=== PATIENT | female | born 1935 | race Caucasian/White ===

== ENCOUNTER → 2017-08-12 08:25 | Outpatient (CLI) | payer MEDICARE, OTHER, SELFPAY ==
[2017-08-12 10:09] LABS: AST(SGOT) 27 U/L (15-37); Alanine Aminotransfer ALT/SGPT 30 U/L (13-56); Albumin, Serum 3.7 g/dL (3.2-5.0); Alkaline Phosphatase 120 U/L (45-117); Bilirubin, Direct 0.14 mg/dL (0.00-0.30); Cholesterol 132 mg/dL (200); High Density Lipoprotein 53 mg/dL; Protein, Total 7.7 g/dL (6.4-8.2); Triglycerides 81 mg/dL; Very Low Density Lipoprotein 16 mg/dL (5-40)
== END ==
PROVIDERS: Family Provider Family Medicine; PCP Family Medicine; Visit Provider Physician Assistant Medical
DX: E78.5 Hyperlipidemia, unspecified (principal); Z79.899 Other long term (current) drug therapy
CPT/HCPCS: 36415; 80061; 80076

== ENCOUNTER → 2017-08-14 10:31 | Outpatient (CLI) | payer MEDICARE, OTHER, SELFPAY ==
--- NOTE | 2017-08-14 10:35 | BI_ITS ---
MAMMOGRAPHY - BILATERAL SCREENING REASON FOR EXAM: Female, 82 years old. Routine annual screening examination. PERTINENT HISTORY: Mother with breast cancer. TECHNIQUE: Digital bilateral breast milli (3D mammographic acquisition) in the CC and MLO projections. 2-D mediolateral oblique (MLO) and craniocaudad (CC) views of both breasts were obtained. CAD: Full Field Digital Mammography with Computer Added Detection was performed. COMPARISON: Comparison is made with prior examination dated August 10, 2015 and July 28, 2014. FINDINGS: Breast Composition: The breasts are heterogeneously dense, which may obscure small masses. There are no dominant masses or suspicious calcifications. Stable bilateral secretory calcifications. No other significant abnormalities are identified. There has been no significant change since the prior study. BI/SCREENING MAMM (CAD), BILAT IMPRESSION: Stable bilateral screening mammogram. Yearly follow-up mammogram recommended. (A) ASSESSMENT CATEGORY: BIRADS Category 2: Benign. A letter regarding these results will be sent to the patient by the facility within 30 days. Approximately 10% of breast cancers are not detected by mammography. A normal mammogram should not delay biopsy of a clinically suspicious abnormality. [id number] Electronically Signed: Herberth Cuello MD at 10:29 EDT Tel [phone], Service support ,
== END ==
PROVIDERS: Family Provider Family Medicine; PCP Family Medicine; Visit Provider Family Medicine
DX: Z00.00 Encounter for general adult medical examination without abnormal findings (principal); Z12.31 Encounter for screening mammogram for malignant neoplasm of breast
CPT/HCPCS: 77063; 77067

== ENCOUNTER → 2018-04-21 15:48 | Outpatient (CLI) | payer MEDICARE, OTHER, SELFPAY ==
[2017-10-05 11:11] VITALS: BMI 18.6
[2018-04-21 18:24] LABS: AST(SGOT) 25 U/L (15-37); Alanine Aminotransfer ALT/SGPT 27 U/L (13-56); Albumin, Serum 3.5 g/dL (3.2-5.0); Alkaline Phosphatase 128 U/L (45-117); Anion Gap 10 (5-15); BUN 29 mg/dL (7-18); BUN/Creat Ratio 28.4 RATIO (10-20); Calcium,Total 8.5 mg/dL (8.5-10.1); Chloride 106 mmol/L (98-107); Creatinine, Serum 1.02 mg/dL (0.55-1.02); EST Glomerular Filtration Rate 55 mL/min (>60); Est Glom Filt Rate - Afr Amer 67 mL/min (>60); Globulin 3.4 g/dL (2.2-4.2); Glucose 85 mg/dL (74-106); Potassium 4.4 mmol/L (3.5-5.1); Protein, Total 6.9 g/dL (6.4-8.2); Sodium Level 143 mmol/L (136-145); Thyroid Stim Hormone (TSH) 1.56 uIU/mL (0.358-3.74)
[2018-04-21 18:40] LABS: Microalbumin,Random Urine 19.8 mg/L (NO RANGE EST.); Microalbumin:Creatinine Ratio 18.9 mg/g CRE (<30 mg/g CRE)
--- OUTSIDE RECORDS SUMMARY | 2018-06-23 18:28 | XMS RPT_ITS ---
:1935 Author Organization OHIP Care Team Providers Name Role Phone João Natarajan Attending Unavailable João Natarajan Primary Care Unavailable Ivone Haro Attending Unavailable Ivone Haro Referring Unavailable João Natarajan Primary Care Unavailable João Natarajan Attending Unavailable João Natarajan Primary Care Unavailable Ivone Vanegas Attending Unavailable Esa Bermudez Attending Unavailable João Natarajan Referring Unavailable João Natarajan Primary Care Unavailable PROBLEMS PROBLEMS DATE TYPE CONDITION / CODE ATTENDING STATUS SOURCE 04/21/2018 Unknown I10 - Essential João Natarajan Active [place] (primary) Replaced By [facility] hypertension / Hospital I10(ICD-10) Repository 10/05/2017 Unknown I25.10 - Esa Bermudez Active [place] Atherosclerotic heart Community disease of [facility] coronary artery Repository without angina pectoris / I25.10(ICD-10) 10/05/2017 Unknown I51.81 - Takotsubo Esa Bermudez Active [place] syndrome / Community I51.81(ICD-10) Hospital Repository 10/05/2017 Unknown I34.1 - Nonrheumatic MoodisEsa patel Active [place] mitral (valve) Replaced By [facility] prolapse / Hospital I34.1(ICD-10) Repository 10/05/2017 Unknown E78.2 - Mixed MoodispaEsa givens Active [place] hyperlipidemia / Community E78.2(ICD-10) Hospital Repository 11/04/2017 Unknown Z00.00 - Encounter João Natarajan Active [place] for [facility] adult [facility] without abnormal Repository findings / Z00.00(ICD-10) 10/05/2017 Unknown E78.5 - HaroAgusto mendez Hyperlipidemia, Ivone Deepthi Replaced By [facility] unspecified / Hospital E78.5(ICD-10) Repository PROCEDURES PROCEDURES No Procedure Records FoundRESULTS RESULTS COMPREHENSIVE METABOLIC Collected: 04/21/2018 Status: F Source: [place] PROFIL 3:50 PM [facility] HOSPITAL REPOSITORY TYPE CODE TESTS RESULT OUT OF RANGE REFERENCE UNITS LAB L501.0100 74-106 mg/dL Normal GLU 85 Result Comment: Please note revised GLUCOSE reference range effective 2017. LAB L501.1000 7-18 mg/dL High BUN 29 LAB L501.1100 0.55-1.02 mg/dL Normal CREAT,SERUM 1.02 Result Comment: The validity of the calculated GFR AND GFRAA in patients over 70 years has not been determined. Clinical correlation is essential. LAB L501.1110 >60 mL/min Low EST GFR 55 Result Comment: Non- GFR Calc LAB L501.1115 >60 mL/min Normal EST GFR - AA 67 Result Comment: GFR Calc LAB L501.1300 10-20 RATIO High BUN/CRE 28.4 LAB L501.1500 6.4-8.2 g/dL T Normal PROT 6.9 LAB L501.1800 3.2-5.0 g/dL Normal ALB 3.5 LAB L501.1950 2.2-4.2 g/dL Normal GLOB 3.4 LAB L501.2000 0.9-2.4 RATIO Normal A/G 1.0 LAB L501.2200 8.5-10.1 mg/dL CA Normal 8.5 LAB L501.4100 15-37 U/L Normal AST 25 LAB L501.4305 45-117 U/L High ALK P 128 LAB L501.4405 13-56 U/L Normal ALT 27 LAB L501.4600 0.20-1.00 mg/dL T Normal BILI 0.30 LAB L501.5300 136-145 mmol/L NA Normal 143 LAB L501.5600 3.5-5.1 mmol/L K Normal 4.4 LAB L501.5900 98-107 mmol/L CL Normal 106 LAB L501.6100 21.0-32.0 mmol/L Normal CO2 27.0 LAB L501.6200 5-15 Normal GAP 10 Performed By: #### L500.4050, L501.9520, L502.0250 #### [facility] [address], [place], [address] THYROID STIM HORMONE Collected: 04/21/2018 Status: F Source: [place] (TSH) 3:50 PM [facility] REPOSITORY TYPE CODE TESTS RESULT OUT OF RANGE REFERENCE UNITS LAB L501.9520 0.358-3.74 uIU/mL Normal TSH 1.56 Performed By: #### L500.4050, L501.9520, L502.0250 #### [facility] [address], [place], [address] MICROALB:CREAT Collected: 04/21/2018 Status: F Source: [place] RATIO,RANDOM UR 3:50 PM [facility] REPOSITORY TYPE CODE TESTS RESULT OUT OF RANGE REFERENCE UNITS LAB L501.1200 NO RANGE EST. mg/dL Normal UR CREAT 105.00 LAB L502.0500 NO RANGE EST. mg/L Normal 19.8 MICROALBUMIN ,UR LAB L502.0600 <30 mg/g CRE mg/g CRE Normal 18.9 MALB:CREAT Performed By: #### L500.4050, L501.9520, L502.0250 #### [facility] [address] [place], [address] CARDIOLOGY VISIT Observed: 10/05/2017 Status: F Source: [place] REPORT 11:46 AM [facility] REPOSITORY [place] [facility] [address] [place] [address] OFFICE VISIT Date of Service: 10/05/17 MR#: [id number] Acct: [id number] Name: AMBERLY ZAVALA Rep #: [id number] : 1935 Provider: Esa Bermudez MD Age/Sex: 82/F [place] [facility] [place] Signed HPI HPI Details: AMBERLY ZAVALA, is a 82 F who presents to the office today for for outpatient cardiovascular follow-up of her history of underlying CAD, stress-induced cardiomyopathy, mitral valve prolapse, superimposed on hyperlipidemia. From a cardiac standpoint since her last visit in January 2017 she states she is doing well. She continues to care for her who has Parkinson's disease as well as manage the overall household. There has been no episodes from her standpoint of concerning chest discomfort or difficulty breathing. There has been no evidence of acute CHF or pulmonary edema. There has been no near syncope or syncope. She has not required any additional cardiovascular diagnostic studies or therapeutic intervention. She had her lipid labs performed in July of this year. Her cholesterol is 132 with an LDL of 63 and HDL of 53 and a triglyceride level of 81. Her AST and ALT were within normal range. Intake Vital Signs10/05/17 Height 5 ft 6 in 10/05/17 Weight: 115 lb 10/05/17 Body Mass Index (BMI) 18.6 10/05/17 Blood Pressure 128/68 Intake Visit Reasons: 6 M FU Allergies No Known Allergies Allergy (Verified 10/05/17 11:11) Medications Ascorbic Acid [Vitamin C] 500 mg PO DAILY@0800 04/18/16 [History Confirmed 10/05/17] Aspirin [Aspir-Low] 81 mg PO DAILY 04/18/16 [History Confirmed 10/05/17] Calcium Carbonate [Calcium] 600 mg PO DAILY 04/18/16 [History Confirmed 10/05/17] Calcium/Magnesium/Zinc [Ljcucsk-Puhypkjeq-Peim Tablet] 1 ea PO DAILY 04/18/16 [History Confirmed 10/05/17] Glucosamine Sulf/Chondroitin A [Glucosamine-Chondroitin Cap] 1 tab PO BID 04/18/16 [History Confirmed 10/05/17] Multivitamin [Multiple Vitamins] 1 ea PO DAILY 04/18/16 [History Confirmed 10/05/17] ALPRAZolam [Xanax] 0.5 mg PO TID PRN PRN #60 tab 04/20/16 [Rx Confirmed 10/05/17] clopidogrel 75 mg tablet 75 mg PO DAILY #90 tab 03/11/17 [Rx Confirmed 10/05/17] isosorbide mononitrate ER 60 mg tablet,extended release 24 hr 60 mg PO DAILY #90 tab 06/01/17 [Rx Confirmed 10/05/17] simvastatin 40 mg tablet 40 mg PO QHS #90 tab 06/01/17 [Rx Confirmed 10/05/17] metoprolol tartrate 50 mg tablet 50 mg PO BID 10/01/17 [History Confirmed 10/05/17] nitroglycerin 0.4 mg sublingual tablet 0.4 mg SUBLINGUAL Q5- 15M PRN 10/01/17 [History Confirmed 10/05/17] trospium 20 mg tablet 20 mg PO BID 10/01/17 [History Confirmed 10/05/17] lisinopril 5 mg tablet 5 mg PO BID tab 10/05/17 [History] [facility] Medical History Old myocardial infarction (Acute) Ischemic cardiomyopathy (Acute) Sinus bradycardia (Acute) Nonrheumatic mitral (valve) prolapse (Acute) Atherosclerotic heart disease of [place] coronary artery without angina pectoris (Chronic) Takotsubo cardiomyopathy (Resolved) Angina pectoris (Chronic) Hyperlipidemia (Chronic) Chest pain (Acute) Apical ballooning syndrome (Acute) Hypothyroidism (Acute) Urgency-frequency syndrome (Inactive) Surgical History Hx of appendectomy (Resolved) Social History Smoking Status: Never smoker alcohol intake: current substance use type: does not use ROS Const Const: Negative for fatigue, weakness, weight gain, weight loss, frequent falls or excessive sweating Eyes Eyes: Negative for change in vision, blurry vision or transient loss of vision ENT ENT: Negative for dizziness or balance problems Cardio Chest Pain: No Palpitations: No Edema: None Muscle aches with walking: None Resp Respiratory: Positive for SOB with activity (going up/downstairs); negative for SOB at rest GI GI: Negative vomiting or vomiting blood/hematemesis : Negative for hematuria Musc Musc: Negative for balance problems, muscle aches/ myalgia, muscle weakness or joint pain Skin Skin: Negative non-healing lesions or rash Neuro Neuro: Negative for weakness, blurry vision, dizziness, lightheadedness, frequent falls or orthostatic symptoms Agustin Hematologic/Lymphatic: Negative for easy bleeding Endo Endo: Negative for fatigue or excessive sweating Psych Psych: Negative for anxiety or depression Allergy Allergy/Immunology: Negative for hives, Negative for rash Cardiology Exam Const Appearance: cooperative, healthy appearing, comfortable and no acute distress Nutritional Appearance: thin Orientation: alert, awake and oriented x3 Head Head: normal to inspection, normocephalic and atraumatic Ears: hearing grossly normal bilaterally Nose: external nose normal Face and Sinus: face symmetric Teeth and gingiva: fair dentition Eyes Eyelids: eyelids normal Conjunctivae: conjunctivae normal Pupils: PERRL EOM: EOM intact bilaterally Neck Neck: normal visual inspection and full ROM Carotids: normal carotid upstroke Chest Chest inspection: normal inspection of the chest and symmetric chest movement Auscultation: Bilateral: Clear to Auscultation Cardio Palpation: normal PMI Rate: regular rate Rhythm: regular rhythm Heart sounds: S1 normal, S2 normal and mid systolic click GI GI: normal to inspection, bowel sounds present, soft and no hepatosplenomegaly Neuro General: alert, awake, oriented x3, gait normal, moves all extremities and no focal motor deficits Skin Skin: no rashes or lesions noted Extremities Pulses: Normal: Right Radial Pulse, Left Radial Pulse Lower Extremity Edema: None: Bilateral Psych Psychological: normal affect Supplemental Info She had a transthoracic echocardiogram on 06/02/2016 at [facility]. The results are as noted below. Interpretation Summary Left ventricular systolic function is normal. The estimated ejection fraction is 60 %. There is mild mitral annular calcification. Extension of the mitral annular calcification onto the posterio mitral valve leaflet. Mild tricuspid valve insufficiency. Mild focal aortic valve calcification. Right ventricular systolic pressure estimated to be 26 mmHg. She had an exercise tolerance test/imaging study performed at [facility] on 05/12/2013. The results are as noted below. EXERCISE TOLERANCE TEST: The patient exercised on a Raul protocol for 9 minutes 45 seconds completing stage Ill and 45 seconds of stage IV achieving a peak heart rate of 162 beats per minute (114% predicted maximum heart rate) and a peak blood pressure of 188/66 mmHg and a peak MET capacity of approximately 11 METS. The baseline ECG demonstrated sinus versus ectopic atrial rhythm. The peak exercise ECG demonstrated aofk-gy-nkve nonspecific ST segment variability with resolution towards baseline beginning less than 1 minute in recovery. There was an occasional PVC during exercise and recovery and an occasional PAC in recovery. The functional capacity was considered good. The patient had no complaint of chest discomfort during exercise or recovery. The examination was discontinued secondary to dyspnea and leg discomfort. IMPRESSION: 1. Technically adequate (percent predicted maximum heart rate greaterthan 85%) exercise tolerance test. 2. Peak exercise ECG with jcjk-lk-bcqq nonspecific ST segment variability with resolution towards baseline beginning less than 1 minute in recovery. 3. Occasional PVC during exercise and recovery. 4. Occasional PAC in recovery. 5. Nuclear images pending. MYOCARDIAL PERFUSION IMAGING STUDY: TECHNIQUE: The patient was injected with 10.3 mCi of Tc99m Cardiolite and subsequently rest SPECT Cardiolite nuclear imaging was obtained in the horizontal long, vertical long, and short axes views, The patient exercised on a Raul protocol for 9 minutes 45 seconds achieving a peak heart rate of 162 beats per minute (114% predicted maximum heart rate) and a peak blood pressure of 188/66 mmHg and a peak MET capacity of 11 METS. The patient was then injected with 31.5 mCi of Tc99m Cardiolite and subsequently stress SPECT Cardiolite nuclear imaging was obtained in the horizontal long, vertical long, and short axes views. A gated Cardiolite study at peak stress was obtained. INTERPRETATION: Rest and stress SPECT Cardiolite nuclear imaging demonstrate extracardiac/hepatic and gastrointestinal tracer uptake near the inferior segments. This is much more prominent at rest as opposed to stress. Otherwise, there appears to be relative uniform tracer uptake and myocardial perfusion appearing within normal limits. There is end systolic thickening and brightening. The gated Cardiolite study demonstrates myocardial thickening and inward wall motion. The reported LVEF is 76%. IMPRESSION: 1. Rest and stress SPECT Cardiolite nuclear imaging demonstrates relative uniform tracer uptake and myocardial perfusion appearing within normal limits. 2. The gated Cardiolite study reports an LVEF of 76%. She had a diagnostic cardiac catheterization performed on 05/03/2008 at [facility]. At that time per the report she had mild elevation of the left ventricular end-diastolic pressure, the left ventricle was thought to be normal with an LVEF of 65%, the left main coronary artery had partial calcification with distal 10-25% stenosis, the LAD had ostial 25% eccentric appearing stenosis, there was proximal hazy eccentric 50%. Stenosis, the diagonal branch was proximally subtotally occluded with the remainder of the vessel filling only late, faintly, and partially and deemed too small and occluded for attempted PCI, the LCx had a proximal OM with a 25% stenosis, the RCA was a dominant vessel with diffuse 10-25% stenosis, and the mitral valve had mild mitral valve prolapse with no significant mitral valve regurgitation. He had a Holter monitor performed at [facility] on 12/29/2012. The results are as noted below. NORMAL SINUS RHYTHM MINIMUM HR 46 BPM AT 10:32:27 AM, NO ACTIVITY OR SYMPTOM RECORDED. AVERAGE HR 64 BPM MAXIMUM HR 98 BPM AT 6:25:49 PM, NO ACTIVTTY OR SYMPTOM RECORDED. RARE ISOLATED PREMATURE ATRIAL COMPLEXES. RARE ATRIAL BIGEMINY. 27 ATRIAL COUPLETS. TWO RUNS TOTALING 14 BEATS. THE LONGEST AND FASTEST RUN WAS 9 BEATS OF PROBABLE ECTOPIC ATRIAL TACHYCARDIA RATE 138 BPM AT 3:26:10 PM. RARE ISOLATED PREMATURE VENTRICULAR COMPLEXES. RARE VENTRICULAR TRIGEMINY. ONE VENTRICULAR COUPLET. NO RUNS NOTED. NO SYMPTOMS DOCUMENTED IN 24 HOUR HOLTER DIARY. Assessment AND Plan 1. Atherosclerosis of [place] coronary artery of [place] heart without angina pectoris I25.10 Plan At the present time she appears to be doing well. She will continue her cardiovascular risk factor modification medical management as deemed appropriate. 2. 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 She will continue medical management and follow-up 3. Nonrheumatic mitral (valve) prolapse I34.1 Plan She appears to be stable based on history and exam. Again she will continue her medical therapy and follow-up. 4. Mixed hyperlipidemia E78.2 Plan Her lipid labs were reviewed. She will continue medical management and follow-up. Plan Detail Additional Comments Thank you for allowing me to participate in the care of your patient. Please don't hesitate to call if any issues arise. This note was generated using a voice recognition system and there may be incorrect words, spelling or punctuation that were not noted when reviewing the office note prior to saving. Follow Up 1 Year (PFM) Coding Level of Care Code Off vis,est,level 3 Diagnoses Atherosclerosis of [place] coronary artery of [place] heart without angina pectoris I25.10 [place] vs. 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 Nonrheumatic mitral (valve) prolapse I34.1 Mixed hyperlipidemia E78.2 Hyperlipidemia type: mixed hyperlipidemia 10/05/17 1146 <Electronically signed by Esa Bermudez MD> Date Esa Bermudez MD Cosigner Signature: Date (if applicable) CC: João Natarajan MD SCREENING MAMM (CAD), Observed: 08/14/2017 Status: F Source: [place] BILAT 10:35 AM [facility] REPOSITORY [facility] Imaging Services [address] [place] [id number] SCREENING MAMM (CAD), BILAT MR#: [id number] Acct: [id number] Name: ZAVALAAMBERLY Vicente Rep #: [id number] : 1935 F 82 From: Herberth Cuello MD PCP: João Natarajan MD Status: [facility] Study: SCREENING MAMM (CAD), BILAT Date of Exam: 08/14/17 Exam# [id number] Ordering Dr: João Natarajan MD MAMMOGRAPHY - BILATERAL SCREENING REASON FOR EXAM: Female, 82 years old. Routine annual screening examination. PERTINENT HISTORY: Mother with breast cancer. TECHNIQUE: Digital bilateral breast milli (3D mammographic acquisition) in the CC and MLO projections. 2-D mediolateral oblique (MLO) and craniocaudad (CC) views of both breasts were obtained. CAD: Full Field Digital Mammography with Computer Added Detection was performed. COMPARISON: Comparison is made with prior examination dated August 10, 2015 and July 28, 2014. FINDINGS: Breast Composition: The breasts are heterogeneously dense, which may obscure small masses. There are no dominant masses or suspicious calcifications. Stable bilateral secretory calcifications. No other significant abnormalities are identified. There has been no significant change since the prior study. BI/SCREENING MAMM (CAD), BILAT IMPRESSION: Stable bilateral screening mammogram. Yearly follow-up mammogram recommended. (A) ASSESSMENT CATEGORY: BIRADS Category 2: Benign. A letter regarding these results will be sent to the patient by the facility within 30 days. Approximately 10% of breast cancers are not detected by mammography. A normal mammogram should not delay biopsy of a clinically suspicious abnormality. [id number] Electronically Signed: Herberth Cuello MD at 10:29 EDT Tel [phone], Service support , CC: João Natarajan MD Leg Assembler: Signed LIVER PROFILE Collected: 08/12/2017 Status: F Source: [place] 8:31 AM [facility] REPOSITORY Order Comment: Order Date: 01/30/17 Order Info: [id number] - *Hepatic Function Panel Order Info: [id number] - *Lipid Profile CC PCP Comments: 12 hours fasting, may have water. TYPE CODE TESTS RESULT OUT OF RANGE REFERENCE UNITS LAB L501.1500 6.4-8.2 g/dL Normal T PROT 7.7 LAB L501.1800 3.2-5.0 g/dL Normal ALB 3.7 LAB L501.1950 2.2-4.2 g/dL Normal GLOB 4.0 LAB L501.4100 15-37 U/L Normal AST 27 LAB L501.4305 45-117 U/L High ALK P 120 LAB L501.4405 13-56 U/L Normal ALT 30 LAB L501.4600 0.20-1.00 mg/dL Normal T BILI 0.50 LAB L501.4700 0.00-0.30 mg/dL Normal D BILI 0.14 Performed By: #### L500.3400 #### [facility] [address] [place], [address] LIPID PROFILE Collected: 08/12/2017 Status: F Source: [place] 8:31 AM [facility] REPOSITORY Order Comment: Order Date: 01/30/17 Order Info: [id number] - *Hepatic Function Panel Order Info: [id number] - *Lipid Profile CC PCP Comments: 12 hours fasting, may have water. TYPE CODE TESTS RESULT OUT OF RANGE REFERENCE UNITS LAB L501.4900 200 mg/dL Normal CHOL 132 Result Comment: <200 mg/dL Desirable 200-240 mg/dL Borderline >240 mg/dL High Risk LAB L501.5000 mg/dL Normal TRIG 81 Result Comment: The drugs N-Acetylcysteine and Metamizole may falsely depress this assay. Serum Triglycerides Reference Interval Normal <150 mg/dL Borderline high 150 - 199 mg/dL High 200 - 499 mg/dL Very High > or = 500 mg/dL LAB L501.6400 mg/dL Normal HDL 53 Result Comment: The drugs N-Acetylcysteine and Metamizole may falsely depress this assay. Reference Range HDL <40 mg/dL Low HDL Cholesterol HDL >or= 60 mg/dL High HDL Cholesterol LAB L501.6500 0-130 mg/dL Normal LDL 63 LAB L501.6600 5-40 mg/dL Normal VLDL 16 Performed By: #### L500.4100 #### [facility] [address] [place], [place], [address] ALLERGIES ALLERGIES DATE TYPE / CODE NAME / CODE REACTION SEVERITY SOURCE 10/05/2017 Drug No Known Unknown [facility] Allergy/4160 Allergies/F00 Hospital 14804(SNOMED [id number](RXNOR Repository CT) M) ENCOUNTERS ENCOUNTERS ADMIT/DISCHARGE ACCOUNT ADMITTING ENCOUNTER LOCATION SOURCE NUMBER CLASS 04/21/2018 [id number] Ambulatory [place] 4 [facility] ing:MFPLAB Repository 10/05/2017/ [id number] Ambulatory BMSBuilding:B [place] [address] 7 [facility] Repository 10/01/2017 [id number] Ambulatory BMSBuilding:B [place] 7 [facility] Repository 08/14/2017 [id number] Amb[place] 4 [facility] ing:OPBI Repository 08/12/2017 [id number] Ambulatory [place] 1 [facility] ing:LAB Repository PAYERS PAYERS ENCOUNTER GUARANTOR PAYER SUBSCRIBER SOURCE 04/21/2018 [place] J Primary AMBERLY Vicente Wass[place] [id number] N Insurance:MEDICARE VALENCIADOB: [facility], PART A [facility] [id number] [address]Eoj: Number: Repository [id number] (HP) Date:2018-04-21 04/21/2018 Secondary AMBERLY Wass[place] [facility] Community Number: [id number] Hospital [id number] Repository Date:1538-46-69[address], [place] [address]TG: 04/21/2018 Tertiary NOT GIVENUNK [place] Insurance:SELF PAY [facility] Number: Effective Repository Date:2018-04-21 10/05/2017 AMBERLY J Primary AMBERLY Vicente Wasserman [id number] N Insurance:MEDICARE VALENCIADOB: [facility], PART A [facility] [id number] Cross Hospital [address]Yzq: Number: Repository [id number] (HP) Date:2017-03-18 10/05/2017 Secondary AMBERLY J [place] Insurance:CIGNAPolicy [facility]: Community Number: [id number] Hospital [id number] Repository Date:1641-97-81TV [address], [place] [address]LA: 10/05/2017 Tertiary NOT GIVENUNK [place] Insurance:SELF PAY [facility] Number: Effective Repository Date:2017-03-18 10/01/2017 Amberly J Primary Amberly Vicente Wasserman [id number] N Insurance:CIGNAPolicy ValenciaDOB: [facility], Number: [id number] Cross Hospital [address]Fcr: [id number] Repository Date:3074-12-83[address]) [place], [place] [address]PJ: 10/01/2017 Secondary AMBERLY J [place] Insurance:MEDICARE VALENCIADOB: Replaced By [facility] PART A [facility] [id number] Hospital Number: Repository [id number] Date:2017-10-01 10/01/2017 Tertiary NOT GIVENUNK [place] Insurance:SELF PAY [facility] Number: Effective Repository Date:2017-10-01 08/14/2017 AMBERLY J Primary AMBERLY Wasserman [id number] N Insurance:MEDICARE VALENCIADOB: [facility], PART A [facility] [id number] Hospital [place] [id number]: Number: Repository [id number] (HP) Date:2017-08-11 08/14/2017 Secondary AMBERLY J [place] Insurance:[facility] VALENCIAB: Replaced By [facility] Number: [id number] Hospital [id number] Repository Date:6835-85-43[address], [place] [address]WV: 08/14/2017 Tertiary NOT GIVENUNK [place] Insurance:SELF PAY [facility] Number: Effective Repository Date:2017-08-11 08/12/2017 AMBERLY J Primary AMBERLY J [place] [id number] N Insurance:MEDICARE VALENCIADOB: [facility], PART A [facility] [id number] Hospital [place] [id number]: Number: Repository [id number] (HP) Date:2017-08-12 08/12/2017 Secondary AMBERLY J [place] Insurance:Bethany GUTIERREZB: Community Number: [id number] [id number] Repository Date:[id number] [address]MC: 08/12/2017 Tertiary NOT GIVENUNK [place] Insurance:SELF PAY [facility] Number: Effective Repository Date:2017-08-12
== END ==
PROVIDERS: Family Provider Family Medicine; PCP Family Medicine; Visit Provider Family Medicine
DX: I10 Essential (primary) hypertension (principal)
CPT/HCPCS: 36415; 80053; 82043; 82570; 84443

== ENCOUNTER → 2018-08-24 | Outpatient (CLI) | payer MEDICARE, OTHER, SELFPAY ==
--- NOTE | 2018-08-24 14:45 | BI_ITS ---
MAMMOGRAPHY - BILATERAL SCREENING REASON FOR EXAM: Female, 83 years old. Routine annual screening examination. PERTINENT HISTORY: Sister with breast cancer. Mother with breast cancer. TECHNIQUE: Digital bilateral breast milli (3D mammographic acquisition) in the CC and MLO projections. 2-D mediolateral oblique (MLO) and craniocaudad (CC) views of both breasts were obtained. CAD: Full Field Digital Mammography with Computer Added Detection was performed. COMPARISON: Comparison is made with prior study dated August 14, 2017 and August 10, 2015. FINDINGS: Breast Composition: The breasts are heterogeneously dense, which may obscure small masses. There are no dominant masses or suspicious calcifications. Stable bilateral secretory calcifications. No other significant abnormalities are identified. There has been no significant change since the prior study. BI/SCREENING MAMM (CAD), BILAT IMPRESSION: Stable bilateral screening mammogram. Yearly follow-up mammogram recommended. (A) ASSESSMENT CATEGORY: BIRADS Category 2: Benign. A letter regarding these results will be sent to the patient by the facility within 30 days. Approximately 10% of breast cancers are not detected by mammography. A normal mammogram should not delay biopsy of a clinically suspicious abnormality. [id number] Electronically Signed: Herberth Cuello, at 8:59 EDT , Service support ,
== END | disposition home or self-care (01) ==
PROVIDERS: Family Provider Family Medicine; PCP Family Medicine; Visit Provider Family Medicine
DX: Z12.31 Encounter for screening mammogram for malignant neoplasm of breast (principal)
CPT/HCPCS: 77063; 77067

== ENCOUNTER → 2018-09-24 | Outpatient (CLI) | payer MEDICARE, OTHER, SELFPAY ==
[2018-09-24 09:29] LABS: AST(SGOT) 23 U/L (15-37); Alanine Aminotransfer ALT/SGPT 25 U/L (13-56); Albumin, Serum 3.4 g/dL (3.2-5.0); Alkaline Phosphatase 108 U/L (45-117); Bilirubin, Direct 0.11 mg/dL (0.00-0.30); Cholesterol 151 mg/dL (200); Globulin 3.7 g/dL (2.2-4.2); High Density Lipoprotein 48 mg/dL; Protein, Total 7.1 g/dL (6.4-8.2); Triglycerides 123 mg/dL; Very Low Density Lipoprotein 25 mg/dL (5-40)
== END | disposition home or self-care (01) ==
LOC: LAB 08:19
PROVIDERS: Physician Assistant Medical; Family Provider Family Medicine; PCP Family Medicine; Referring Provider Internal Medicine Cardiovascular Disease; Visit Provider Internal Medicine Cardiovascular Disease
DX: E78.5 Hyperlipidemia, unspecified (principal)
CPT/HCPCS: 36415; 80061; 80076

== ENCOUNTER → 2018-12-21 17:14 | Outpatient (CLI) | payer MEDICARE, OTHER, SELFPAY ==
[2018-11-10 15:06] VITALS: BMI 19.2
== END ==
PROVIDERS: Family Provider Family Medicine; PCP Family Medicine; Referring Provider Urology; Visit Provider Urology
DX: R82.998 Other abnormal findings in urine (principal)
CPT/HCPCS: 87077; 87086; 87088; 87186

== ENCOUNTER → 2019-08-19 08:18 | Outpatient (CLI) | payer MEDICARE, OTHER, SELFPAY ==
[2019-05-16 08:58] VITALS: BMI 20.5
[2019-08-19 09:06] LABS: AST(SGOT) 23 U/L (15-37); Alanine Aminotransfer ALT/SGPT 23 U/L (13-56); Albumin, Serum 3.5 g/dL (3.2-5.0); Alkaline Phosphatase 121 U/L (45-117); Bilirubin, Direct 0.12 mg/dL (0.00-0.30); Cholesterol 159 mg/dL (200); High Density Lipoprotein 47 mg/dL; Protein, Total 7.5 g/dL (6.4-8.2); Triglycerides 136 mg/dL; Very Low Density Lipoprotein 27 mg/dL (5-40)
== END ==
PROVIDERS: PCP Family Medicine; Referring Provider Nurse Practitioner Family; Visit Provider Nurse Practitioner Family
DX: E78.5 Hyperlipidemia, unspecified (principal)
CPT/HCPCS: 36415; 80061; 80076

== ENCOUNTER → 2019-08-26 12:51 | Outpatient (CLI) | payer MEDICARE, OTHER, SELFPAY ==
[2019-05-16 08:58] VITALS: BMI 20.5
--- NOTE | 2019-08-26 12:55 | BI_ITS ---
MAMMOGRAPHY - BILATERAL SCREENING REASON FOR EXAM: Female, 84 years old. Routine annual screening examination. PERTINENT HISTORY: Sister with breast cancer. Mother with breast cancer. TECHNIQUE: Digital bilateral breast sudheer (3D mammographic acquisition) in the CC and MLO projections. 2-D mediolateral oblique (MLO) and craniocaudad (CC) views of both breasts were obtained. CAD: Full Field Digital Mammography with Computer Added Detection was performed. COMPARISON: Comparison is made with prior study dated August 24, 2018 and August 14, 2017. FINDINGS: Breast Composition: The breasts are heterogeneously dense, which may obscure small masses. There are no dominant masses or suspicious calcifications. No other significant abnormalities are identified. There has been no significant change since the prior study. BI/SCREEN MAMM (CAD) W/SUDHEER BILAT IMPRESSION: Stable bilateral screening mammogram. Yearly follow-up mammogram recommended. (A) ASSESSMENT CATEGORY: BIRADS Category 1: Negative. A letter regarding these results will be sent to the patient by the facility within 30 days. Approximately 10% of breast cancers are not detected by mammography. A normal mammogram should not delay biopsy of a clinically suspicious abnormality. [id number] Electronically Signed: Herberth Cuello, at 14:19 EDT , Service support ,
== END ==
PROVIDERS: PCP Family Medicine; Referring Provider Family Medicine; Visit Provider Family Medicine
DX: Z12.31 Encounter for screening mammogram for malignant neoplasm of breast (principal)
CPT/HCPCS: 77063; 77067

== ENCOUNTER → 2020-07-30 | Outpatient (CLI) | payer MEDICARE, OTHER, SELFPAY ==
[2020-02-17 09:28] VITALS: BMI 19.9
== END | disposition home or self-care (01) ==
LOC: LABSPEC 12:40
PROVIDERS: PCP Family Medicine; Referring Provider Nurse Practitioner Adult Health; Visit Provider Nurse Practitioner Adult Health
DX: R82.90 Unspecified abnormal findings in urine (principal)
CPT/HCPCS: 87086; 87088; 87186

== ENCOUNTER → 2020-08-29 10:19 | Outpatient (CLI) | payer MEDICARE, OTHER, SELFPAY ==
[2020-02-17 09:28] VITALS: BMI 19.9
--- NOTE | 2020-08-29 10:22 | BI_ITS ---
MAMMOGRAPHY - BILATERAL SCREENING REASON FOR EXAM: Female, 85 years old. Routine annual screening examination. PERTINENT HISTORY: Sister with breast cancer. Mother with breast cancer. TECHNIQUE: Digital bilateral breast sudheer (3D mammographic acquisition) in the CC and MLO projections. 2-D mediolateral oblique (MLO) and craniocaudad (CC) views of both breasts were obtained. CAD: Full Field Digital Mammography with Computer Added Detection was performed. COMPARISON: Comparison is made with prior study dated 08/26/2019 and 08/24/2018. FINDINGS: Breast Composition: The breasts are extremely dense, which lowers the sensitivity of mammography. There are no dominant masses or suspicious calcifications. No other significant abnormalities are identified. There has been no significant change since the prior study. BI/SCRN MAMM (CAD)W/SUDHEER BILAT IMPRESSION: Stable bilateral screening mammogram. Yearly follow-up mammogram recommended. (A) ASSESSMENT CATEGORY: BIRADS Category 1: Negative. A letter regarding these results will be sent to the patient by the facility within 30 days. Approximately 10% of breast cancers are not detected by mammography. A normal mammogram should not delay biopsy of a clinically suspicious abnormality. [id number] Electronically Signed: Herberth Cuello MD at 11:15 EDT , Service support ,
== END ==
PROVIDERS: PCP Family Medicine; Referring Provider Nurse Practitioner Adult Health; Visit Provider Nurse Practitioner Adult Health
DX: Z12.31 Encounter for screening mammogram for malignant neoplasm of breast (principal)
CPT/HCPCS: 77063; 77067

== ENCOUNTER → 2020-09-03 09:51 | Outpatient (CLI) | payer MEDICARE, OTHER, SELFPAY ==
[2020-09-03 11:29] LABS: AST(SGOT) 22 U/L (15-37); Alanine Aminotransfer ALT/SGPT 22 U/L (13-56); Albumin, Serum 3.3 g/dL (3.2-5.0); Alkaline Phosphatase 126 U/L (45-117); Bilirubin, Direct 0.12 mg/dL (0.00-0.30); Cholesterol 156 mg/dL (200); Globulin 3.8 g/dL (2.2-4.2); High Density Lipoprotein 41 mg/dL; Protein, Total 7.1 g/dL (6.4-8.2); Triglycerides 175 mg/dL; Very Low Density Lipoprotein 35 mg/dL (5-40)
== END ==
PROVIDERS: PCP Family Medicine; Referring Provider Physician Assistant Medical; Visit Provider Physician Assistant Medical
DX: I25.10 Atherosclerotic heart disease of native coronary artery without angina pectoris (principal); E78.2 Mixed hyperlipidemia
CPT/HCPCS: 36415; 80061; 80076

== ENCOUNTER 2020-11-19 05:28 | Day surgery (SDC) | payer MEDICARE, OTHER, SELFPAY ==
[2020-02-17 09:28] VITALS: BMI 19.9
[2020-09-18 12:24] LABS: Hematocrit 43.6 % (37-47); Hemoglobin 14.1 g/dL (12.0-15.0); Mean Corp Hgb Conc 32.3 g/dL (32-36); Mean Corpuscular Hgb 30.6 pg (27.0-32.0); Mean Corpuscular Volume 94.6 fL (81-99); Mean Platelet Vol. 10.6 fl (6.2-12.0); Platelet Count 236 K/mm3 (150-450); RBC Distribution Width CV 13.2 % (11.6-14.6); RBC Distribution Width SD 46.4 fl (35.1-43.9); Red Blood Count 4.61 M/mm3 (4.2-5.4); White Blood Count 5.2 K/mm3 (4.4-11.0)
[2020-09-18 12:34] LABS: Prothrombin Time (Protime)PT. 12.9 SECONDS (11.7-14.9)
[2020-09-18 12:35] LABS: Partial Thromboplast Time 26.9 Seconds (24.1-36.2)
[2020-09-18 13:06] LABS: ALB/GLOB Ratio 0.9 RATIO (0.9-2.4); AST(SGOT) 27 U/L (15-37); Alanine Aminotransfer ALT/SGPT 22 U/L (13-56); Albumin, Serum 3.4 g/dL (3.2-5.0); Alkaline Phosphatase 109 U/L (45-117); Anion Gap 4 (5-15); BUN 22 mg/dL (7-18); BUN/Creat Ratio 25.4 RATIO (10-20); Calcium,Total 8.6 mg/dL (8.5-10.1); Chloride 104 mmol/L (98-107); Creatinine, Serum 0.87 mg/dL (0.55-1.02); EST Glomerular Filtration Rate 66 mL/min (>60); Est Glom Filt Rate - Afr Amer 80 mL/min (>60); Globulin 3.9 g/dL (2.2-4.2); Glucose 75 mg/dL (74-106); Magnesium 2.5 mg/dL (1.6-2.6); Potassium 4.7 mmol/L (3.5-5.1); Protein, Total 7.3 g/dL (6.4-8.2); Sodium Level 139 mmol/L (136-145); Thyroid Stim Hormone (TSH) 2.02 uIU/mL (0.358-3.74)
--- NOTE | 2020-11-18 14:45 | PCM.HP.BLA ---
History and Physical Date of Admission: 11/19/20 Surgical History and Physical Mendy Balbuena, a 85 year old female 3 0 0 0 3, presents for Vaginal Hysterectomy and AP Repair on November 19 at 7:30. -- Uterovaginal Prolapse -- She relates feeling an uncomfortable bulge in her vagina, issues with incontinence when she does not empty bladder frequently. Feels something dropping at times and will feel something when sitting down. Pessary No 5 ring with support worked for her but does slip down; just wants a hysterectomy so she doesn't have to bother with this any longer. MEDICATIONS HISTORY: Patient is also takin. clopidogrel 75 mg tablet 2. Glucosamine Chondroit Complx Advan 750 mg-100 mg-125 mg-1.65 mg tablet 3. isosorbide mononitrate ER 60 mg tablet,extended release 24 hr 4. metoprolol tartrate 50 mg tablet 5. multivitamin tablet 6. simvastatin 40 mg tablet 7. lisinopril 5 mg tablet, One pill by mouth once a day 8. trospium 20 mg tablet, One pill by mouth twice a day 9. Myrbetriq 50 mg tablet,extended release, One pill by mouth once a day 10. levocetirizine 5 mg tablet, One pill by mouth once a day ALLERGIES: No Known Allergies Infections - Chicken pox, Mumps, Measles, bovine TB and Illnesses - heart disease Accidents - no injuries of consequence Hospitalizations - Childbirth and see surgery Review of Systems: GENERAL - Denies fever, or chills SKIN - Denies skin changes EYES - Denies visual changes EARS - Denies difficulty hearing NOSE - Denies nasal congestion or bleeding MOUTH - Denies sore throat or difficulty swallowing NECK - Denies pain or swelling RESPIRATORY - Denies shortness of breath or wheezing CARDIOVASCULAR - Denies palpitations or chest pain GASTROINTESTINAL - Denies nausea, vomiting, diarrhea, constipation GENITOURINARY - Denies dysuria, frequency of urination, incontinence of urine MUSCULOSKELETAL - Denies joint or muscle pain NEUROLOGICAL - Denies localized numbness or weakness PSYCHIATRIC - Denies depression or anxiety ENDOCRINE - Denies heat or cold intolerance, weight loss or gain HEMATO-IMMUNOLOGIC - Denies excesive bleeding with cuts SOCIAL HISTORY: Alcohol Use - drinks occasionally Smoking - denies smoking Diet - balanced Diet, vegetables and little red meat Lifestyle - moderate stress lifestyle and with health issues Exercise - regular and very active Seat Belt Use - always Employer - Retired Job Description - homemaker, retired RN Illicit Drug Use - denies use of street drugs Sexual Activity - Spouse-Sig Other Name - Deni Spouse-Sig Other Occupation - Children Name(s) - 3 children Control - postmenopausal FAMILY HISTORY: nc MENSTRUAL HISTORY: LMP Known?- Postmenopausal PAST PREGNANCIES: Total Pregnancies - 3; Full Term Pregnancies - 3; Premature - 0; Abortions, Induced - 0; Abortions, Spontaneous - 0; Ectopics - 0; Multiple Births - 0; Living Children - 3 SURGICAL HISTORY: 1. Appendectomy, 1953 PHYSICAL EXAM BP- 122/60 Sitting, Left arm, regular cuff Weight- 121.0 lbs Height- 66 inch BMI:19.5 CONSTITUTIONAL - NAD, well nourished, and well developed SKIN - No rash, lesions, or ulcers HEENT - Normocephalic, PERRLA, EOMI NECK - No nodes, no nuchal rigidity and thyroid normal size and texture LYMPH NODES - Palpation of lymph nodes in neck and groins within normal limits LUNGS - CTA x2 without wheezes, crackles or rales CARDIAC - Regular rate and rhythm without rubs, murmurs, or gallops ABDOMEN - Without hepatosplenomegaly, distention, masses, rebound, or guarding; normal bowel sounds; no hernias EXTREMITIES - No edema or calf tenderness NEUROLOGICAL - Cranial nerves II-XII grossly intact PSYCHIATRIC - A and O to time, place, person, mood and affect External Genitial Vagina - non-tender without lesions Urethra/Urethral Meatus - non-tender Bladder - non-tender Vagina - loss of rugae Cervix - without cervical motion tenderness and has normal size and features without evident lesions, cervix protrude to within 1-2 cm of introitus with coughing Uterus - 5-6 cm in size, mobile and nontender Adnexa - clear without massess or tenderness ASSESSMENT/PLAN: 1. Uterovaginal Prolapse, Incomplete Pessary helped but now unable to remove and reinsert herself. Wants a hysterectomy. Plan vaginal hysterectomy and AP Repair. Discussed RBAs and all questions answered. Used intravaginal estrogen cream.
[2020-11-19] VITALS (15 sets, daily range): BP systolic 116–156; BP diastolic 49–64; PULSE 51–71; RESP 16–18; TEMP 36–36.8; O2SAT 88–100; BMI 19.1
[2020-11-19 06:41] LABS: Bedside Glucose 96 mg/dL (70-110)
[2020-11-19] MEDS: Acetaminophen 500 MG Tablet 1000 MG PO ×3 (06:54→18:10)
[2020-11-19] MEDS: Gabapentin 600 MG Tablet PO (06:54)
[2020-11-19] MEDS: Lactated Ringers 1,000 ML 40 ML IV (06:55)
[2020-11-19] MEDS: Cefazolin 2 GM in 0.9% Normal Saline 100 ML IV (07:29)
--- NOTE | 2020-11-19 07:30 | HYST_PTH ---
PATIENT: AMBERLY ZAVALA LOC: [facility] [place] U#:[id number] AGE/SX: 85/F ROOM: RE11/19/[address]: Dr. Jonathan Ramon MD : 1935 BED: DIS: 11/20/2020 SPEC #: [id number] RECD: 11/19/20 10:52 STATUS: JANUSZ REShelbie #: [id number] FARIDA: 11/19/20 07:[address]: Jonathan Ramon DEPT: SURGICAL PATHOLOGY RECD BY: Nelly Mckinney ENTERED: 11/19/20 12:42 SP TYPE: HYSTERECT OTHR DR: Dr. João Natarajan MD Tissues: Uterus, NOS Procedures: Surgery Specimen Level V HEADER OPERATION: ERAS, vaginal hysterectomy, anterior posterior repair PRE-OP DIAGNOSIS: Incomplete uterovaginal prolapse, cystocele, rectocele TISSUE SUBMITTED: Uterus, cervix, vaginal mucosa MICROSCOPIC DIAGNOSIS Uterus, cervix and vaginal mucosa, vaginal hysterectomy and anterior and posterior repair: Cervix ? mild chronic cystic cervicitis. - Focal hyperkeratosis and parakeratosis. Endometrium ? predominantly inactive endometrium with focal simple endometrial hyperplasia without atypia. Myometrium ? intramural leiomyomas (largest measuring 0.7 cm in greatest dimension). Vaginal mucosa ? focal hyperkeratosis and parakeratosis. SJ:rg 11/20/2020 MICROSCOPIC DESCRIPTION Slides are reviewed. GROSS DESCRIPTION Received in fixative is one container labeled with the patient's name and designated uterus, cervix, vaginal mucosa. The specimen consists of a hysterectomy specimen consisting of uterus with cervix and detached pieces of mucosal tissue. The uterus with cervix weighs 38 gm and measures 8 x 4.5 x 3 cm. The serosal surface is dalton, glistening. The ectocervical mucosa is unremarkable. The external os is oval in contour. The endocervical canal measures 3.5 cm in length and the endocervical mucosa is dalton, glistening and unremarkable. Sections reveal a few cysts filled with mucoid material. The triangular endometrial cavity measures 3.5 cm in length and up to 2 cm in width. The endometrium is dalton, glistening without any mass lesion and measures 0.1 cm in thickness. Sections of the uterine wall reveal multiple nodular masses, the largest mass measuring 0.7 cm in greatest dimension. The uterine wall measures up to 1.5 cm in thickness. Also present in the container are multiple detached pieces of dalton mucosal tissue measuring in aggregate 7 x 5 x 0.5 cm. No mucosal lesion is identified. Multiple instrumentation de luna are noted. Land Surveying Manager sections are submitted in eight cassettes as follows: 1 - anterior cervix, 2 - posterior cervix, 3 & 4 - anterior uterine wall, 5 & 6 - posterior uterine wall, 7 - nodular masses, 8??mucosal tissue. / AZAM:alana 11/19/20 TC:1 CPT: 89699
--- NOTE | 2020-11-19 07:30 | PCM.OPRPT ---
Problems Associated Problem List Diagnoses (1) Cystocele and rectocele with incomplete uterovaginal prolapse: Report of Operation Date of Procedure: 11/19/20 Pre-Operative Diagnosis: Incomplete Uterovaginal Prolapse, Cystocele, Rectocele Post-Operative Diagnosis: Incomplete Uterovaginal Prolapse, Cystocele, Rectocele Surgery/Procedure Performed:: Vaginal Hysterectomy and Anterior Posterior Repair Description of Surgical Findings:: 6 cm uterus with cystocele with prolapse to the introitus. Moderate rectocele. Surgeon: Jonathan Ramon stitchdown thread laster: Fabián Denney Type of Anesthesia: General (Endotracheal) Anesthesiologist: Jacinto Wright Specimen's removed: Uterus and vaginal mucosa Drains: Unger to straight drain Estimated Blood Loss (mL): 50 cc Fluids Replaced: Crystalloid Description of Procedure: Surgeon: Jonathan Ramon MD, FACOG Indications: This is a 85-year-old who is been having problems with prolapse symptoms. Conservative measures have not been helpful. Given this the patient desires that we proceed the above procedure. She has been counseled regarding the risk and indications of this procedure including the possibility of bleeding, infection, and injury to surrounding structures such as bowel bladder. All questions were answered. Procedure: Patient was taken to the operating room where after induction of general anesthesia she was placed in the dorsal lithotomy position and prepped and draped in the usual sterile fashion. A Unger catheter was placed. Anterior cervix was grasped with a tenaculum and anterior cervix circumscribed with cautery on a setting of 35 W coagulation. Anterior vaginal mucosa was undermined and anterior peritoneum was easily entered. The posterior aspect of the cervix was circumscribed with a knife and posterior peritoneum easily entered. Progressive bites were taken on either side of the uterine cervix and each pedicle ligated with 0 Vicryl suture. Superior pedicles were ligated ?2 with 0 Vicryl suture and sidewall pedicles were examined and oversewn where necessary with [id number] 0 Vicryl suture to achieve hemostasis. Posterior vaginal cuff was oversewn with running locked 0 Vicryl suture. Hemostasis was noted and peritoneum was closed in a pursestring fashion incorporating superior pedicles into the stitch. Vaginal cuff was then closed front to back with interrupted [id number]-[id number] 0 Vicryl suture. Hemostasis was noted. Attention was turned toward the anterior repair portion of the procedure. Anterior vaginal mucosa was undermined and divided and then imbricated toward the midline with interrupted 0 Vicryl sutures. Vaginal mucosa was trimmed and then closed with interrupted 2-0 chromic suture. Vaginal cuff was then closed front to back with interrupted [id number] 0 Vicryl suture. Hemostasis was noted. Attention was turned toward the posterior repair portion of the procedure. Remnants of the hymenal ring were grasped with Allises and a V-shaped incision was made in the perineum. Rectovaginal mucosa was then undermined divided and then imbricated toward the midline with interrupted 0 Vicryl suture. Vaginal mucosa was trimmed and then closed with running locked 2-0 chromic suture. Remnants of the bulbocavernosus muscles were identified and brought toward the midline with a single adeeau-ua-mgqna 0 Vicryl suture and perineum was closed in the usual fashion with running and subcuticular, and mdqhtu-fe-zvgqg 2-0 chromic suture. Hemostasis was noted. Unger catheter was again opened and clear yellow urine was noted. Vagina was packed with iodoform tape. Patient tolerated the procedure well was taken to recovery room in satisfactory condition; sponge instrument and needle counts were all reportedly correct. Estimated blood loss for the case was [ ] cc. [ ] 2 g IV was given prior to beginning the operative procedure. There were no apparent complications of the surgery. Specimen to pathology was uterus and vaginal mucosa. Grafts/Implants Used: None Complications None Admit VTE Documentation VTE Present on Admission: Yes VTE Mechan Device Prophylaxis: SCD's VTE Pharm Prophylaxis ordered?: Yes
--- NOTE | 2020-11-19 07:34 | PCM.DC ---
Discharge Instructions Diet Discharge Diet: No restrictions Activity Discharge Activity: May Shower and May Take a Tub Bath May resume sexual activity in: 6 weeks (nothing in the vagina.) Lifting Restrictions: 25 pounds for 6 weeks. Dressing / Incision Call your doctor if your incision/area has: Continuous Slow Oozing, Sudden Increased Bleeding, Increased Pain/ Swelling, Increased Redness and Foul Smelling Discharge Call your doctor if you observe: Fever of 101 or Higher, Inability to urinate, Inability to have a bowel movement, Using more than 1 pad per hour and - (Some vaginal bleeding may be noted for up to 4-8 weeks.) Cleanse incision/area with: - (Let the soapy water run over your incision, rinse and pat dry.) Follow Up Care Please Follow Up With: Jonathan Ramon MD When: Call [phone] for an appointment to be seen in 2 weeks. Test Results: Test results from this visit will be discussed in further detail at your follow-up appointment, if applicable. Discharge Plan Admission Primary Reason for Your Visit: Vaginal Hysterectomy and Vaginal Repair Attending Provider: Jonathan Ramon Primary Care Provider: João Natarajan Instructions Patient Instructions: ED Chest Pain, Noncardiac Discharge Orders/Prescriptions Prescriptions: New docusate sodium 100 mg tablet 100 mg PO BID PRN (Reason: constipation) Qty: 60 RF: 1 No Action cholecalciferol (vitamin D3) 25 mcg (1,000 unit) capsule 25 mcg PO DAILY RF: 0 Myrbetriq 50 mg tablet extended release 24 hr 50 mg PO DAILY RF: 0 nitroglycerin 0.4 mg tablet, sublingual 0.4 mg SUBLINGUAL Q5-15M PRN (Reason: chest pain) Qty: 25 RF: 3 multivitamin 1 EACH tablet 1 ea PO DAILY RF: 0 aspirin 81 MG tablet,delayed release (DR/EC) 81 mg PO DAILY RF: 0 ascorbic acid (vitamin C) 500 MG tablet 500 mg PO DAILY@0800 RF: 0 glucosamine sulf-chondroitinSA 1 EACH capsule 1 tab PO BID RF: 0 rysylcc-ioupjnsnd-nxlo Tablet 1 tab PO DAILY RF: 0 isosorbide mononitrate 60 mg tablet extended release 24 hr 60 mg PO DAILY Qty: 90 RF: 4 metoprolol tartrate 50 mg tablet 50 mg PO BID Qty: 180 RF: 3 simvastatin 40 mg tablet 40 mg PO QHS Qty: 90 RF: 4 clopidogrel 75 mg tablet See Rx Instructions .ROUTE .COMPLEX Qty: 90 RF: 3 lisinopril 5 mg tablet 5 mg PO BID Qty: 180 RF: 3 Referrals / Follow Up: João Natarajan MD [Primary Care Provider] - Disposition Disposition (needs filled in before D/C Order can be placed): Home, Self Care
[2020-11-19] MEDS: Lactated Ringers 1,000 ML 100 ML IV ×2 (09:30→17:25)
[2020-11-19] MEDS: Ondansetron 4 MG/2 ML Vial IV (10:08)
[2020-11-19] MEDS: Aspirin E.C. 81 MG Tablet PO (11:40)
[2020-11-19] MEDS: Metoprolol Tartrate 50 MG Tablet PO (11:40)
[2020-11-19] MEDS: Isosorbide Mononitrate 60 MG Tablet PO (11:40)
[2020-11-19] MEDS: Lisinopril 5 MG Tablet PO ×2 (11:43→20:37)
[2020-11-19] MEDS: Cefazolin 1 GM/50 ML BAG IV (17:25)
[2020-11-19] MEDS: Enoxaparin 30 MG/0.3 ML Syringe SC (18:10)
[2020-11-19] MEDS: Atorvastatin Calcium 20 MG Tablet PO (20:37)
[2020-11-19] MEDS: Docusate Sodium 100 MG Capsule PO (20:38)
--- NOTE | 2020-11-19 21:50 | PCS.PANDOC ---
PANDEMIC DOCUMENTATION INITIATED: Date: 11/12/2020 Time: 190
[2020-11-20] VITALS (9 sets, daily range): BP systolic 102–128; BP diastolic 46–68; PULSE 63–79; RESP 16–18; TEMP 36.4–36.9; O2SAT 94–97
[2020-11-20] MEDS: Cefazolin 1 GM/50 ML BAG IV (00:10)
[2020-11-20] MEDS: Acetaminophen 500 MG Tablet 1000 MG PO ×3 (00:10→12:45)
[2020-11-20 06:21] LABS: Hemoglobin 10.9 g/dL (12.0-15.0); Mean Corpuscular Hgb 31.2 pg (27.0-32.0); Mean Corpuscular Volume 94.6 fL (81-99); Mean Platelet Vol. 10.2 fl (6.2-12.0); Platelet Count 184 K/mm3 (150-450); RBC Distribution Width CV 13.1 % (11.6-14.6); RBC Distribution Width SD 44.8 fl (35.1-43.9); Red Blood Count 3.49 M/mm3 (4.2-5.4); White Blood Count 8.5 K/mm3 (4.4-11.0)
[2020-11-20 06:48] LABS: Creatinine, Serum 0.97 mg/dL (0.55-1.02); EST Glomerular Filtration Rate 58 mL/min (>60); Est Glom Filt Rate - Afr Amer 70 mL/min (>60); Estimated Creatinine Clearance 36.01 ml/min
--- NOTE | 2020-11-20 08:17 | PCM.PN.OB ---
Subjective Subjective Patient without complaints. Tolerating diet well. Minimal vaginal bleeding reported. No pain. Objective Data Objective Data Vaginal pack removed with minimal bleeding noted. Good urine output. Hemoglobin okay. Vital Signs: Vital Signs Temp Pulse Resp BP Pulse Ox 97.8 F 72 18 128/59 H 94 11/20/20 05:15 11/20/20 05:15 11/20/20 05:15 11/20/20 05:15 11/20/20 07:20 Oxygen Flow Rate (L/min) 2 Oxygen Delivery Method Room Air Weight: 118 lb 9.739 oz Body Mass Index (BMI) 19.1 Intake & Output: Intake and Output for Last 24 Hours 11/18/20 11/19/20 11/20/20 23:59 23:59 23:59 Intake Total 2288.17 / 2488.17 1200.58 / 1200.58 Output Total 220 / 620 1300 / 1300 Balance 2068.17 / 1868.17 -99.42 / -99.42 Lab / Micro Data Result Diagrams: 11/20/20 05:56 11/20/20 05:56 Labs: Laboratory Results - last 24 hr 11/19/20 06:27: Blood Type O POSITIVE, Antibody Screen NEGATIVE 11/20/20 05:56: WBC 8.5, RBC 3.49 L, Hgb 10.9 L, Hct 33.0 L, MCV 94.6, MCH 31.2, MCHC 33.0, RDW Std Deviation 44.8 H, RDW Coeff of Angelo 13.1, Plt Count 184, MPV 10.2 11/20/20 05:56: Creatinine 0.97, Estim Creat Clear Calc 36.01, Est GFR (MDRD) Af Amer 70, Est GFR (MDRD) Non-Af 58 L Assessment & Plan (1) Cystocele and rectocele with incomplete uterovaginal prolapse: PLAN: Doing well postoperative day #1 status post vaginal hysterectomy and anterior posterior repair. Will discharge home later today when able to void on own.
[2020-11-20] MEDS: Metoprolol Tartrate 50 MG Tablet PO (09:48)
[2020-11-20] MEDS: Aspirin E.C. 81 MG Tablet PO (09:48)
[2020-11-20] MEDS: Docusate Sodium 100 MG Capsule PO (09:48)
== END 2020-11-20 16:20 | disposition home or self-care (01) ==
LOC: SDC 05:29 → AC 05:29 → MS3 13:05
PROVIDERS: Anesthesiology; PCP Family Medicine; Referring Provider Obstetrics & Gynecology; Visit Provider Obstetrics & Gynecology
PROC: (CPT 58260; principal; 2020-11-19 07:10)
DX: N81.2 Incomplete uterovaginal prolapse (principal); I25.10 Atherosclerotic heart disease of native coronary artery without angina pectoris; I25.5 Ischemic cardiomyopathy; E78.2 Mixed hyperlipidemia; I34.1 Nonrheumatic mitral (valve) prolapse; I25.2 Old myocardial infarction; I10 Essential (primary) hypertension; E03.9 Hypothyroidism, unspecified; Z79.82 Long term (current) use of aspirin; Z79.899 Other long term (current) drug therapy
CPT/HCPCS: 00944; 57260; 58260; 36415; 80053; 82565; 82962; 83735; 84443; 85027; 85610; 85730; 86850; 86900; 86901; 88307; 94762; 97802; 99251; J7120; G0463; J2405; J3475

== ENCOUNTER 2021-07-19 05:55 | Day surgery (SDC) | payer MEDICARE, OTHER, SELFPAY ==
[2021-07-19] VITALS (7 sets, daily range): BP systolic 152–178; BP diastolic 60–114; PULSE 57–66; RESP 14–16; TEMP 36–36.8; O2SAT 95–100; BMI 20.2
[2021-07-19] MEDS: Lactated Ringers 1,000 ML 15 ML IV (06:34)
[2021-07-19] MEDS: Lidocaine Jelly 2% 20 ML Syringe (URO-JET) 1 APPLIC (07:42)
[2021-07-19] MEDS: Cefazolin 2 GM in 0.9% Normal Saline 100 ML IV (07:52)
--- NOTE | 2021-07-19 08:05 | OP.PCM_ITS ---
Report of Operation Date of Procedure: 07/19/21 Pre-Operative Diagnosis: Intrinsic sphincter deficiency Post-Operative Diagnosis: Same Surgery/Procedure Performed:: Cystoscopy and injection of a bulking urethral agent and to the urethra, Macroplastique Description of Surgical Findings:: Patient was taken back to the operating room after smooth induction of general anesthesia she was placed in dorsolithotomy position. The urethra vaginal area prepped and draped in usual sterile fashion I went into the bladder with a 21 Ukrainian rigid cystourethroscope with a straight scope for injection basically found she had a fairly large distended bladder capacious bladder from chronic distention she did have a hyper mobile urethra. The Macroplastique bulking injection agent was prepared in the back table we then used a straight offset scope, and then through the scope in the urethra I tunneled the first needle underneath the urethra going past the 2 points on the marking the needle bevel tip up and then injected 1.5 cc of Macroplastique, I then went to the 3:00 and did the same thing injected another 1.5 cc of Macroplastique and then went to the 9:00 and inject another 1.5 cc of Macroplastique both these 3 injections look successful there was good coaptation of the urethra and squeezing of the urethra I then did another injection periurethrally without the scope another 1.5cc on each section this was a periurethral urethral injection. Once this was done then we drained the bladder with a 10 Ukrainian straight catheter and the patient anesthetic was versed taken back to PACU in good condition. Surgeon: cy Type of Anesthesia: General Drains: none Admit VTE Documentation VTE Present on Admission: No VTE Mechan Device Prophylaxis: SCD's VTE Pharm Prophylaxis ordered?: No
--- NOTE | 2021-07-19 08:05 | PCM.HP.STD ---
HPI - General HPI Narrative AMBERLY ZAVALA, is a 86 F who presents for injection of the urethra for stress incontinence intrinsic sphincter deficiency. [facility] Medical History (Updated 07/12/21 @ 10:21 by Nori Yeung) Alcohol use Atherosclerotic heart disease of [place] coronary artery without angina pectoris Bladder disease Cardiology follow-up encounter High cholesterol Hypertension Hypothyroidism Ischemic cardiomyopathy Leg cramps Mixed hyperlipidemia Non-smoker Nonrheumatic mitral (valve) prolapse Normal echocardiogram (~06/02/16) Old myocardial infarction Sinus bradycardia Takotsubo cardiomyopathy Urgency-frequency syndrome Wears glasses Wears hearing aid Home Medications ascorbic acid (vitamin C) 500 mg PO DAILY@0800 04/18/16 [History Last Taken 11/18/20] aspirin 81 mg PO QHS 04/18/16 [History Last Taken 07/13/21] glucosamine sulf-chondroitinSA 1 tab PO BID 04/18/16 [History Last Taken 11/18/20] multivitamin 1 ea PO DAILY 04/18/16 [History Last Taken 11/18/20] cholecalciferol (vitamin D3) 25 mcg (1,000 unit) capsule 25 mcg PO DAILY 02/17/20 [History Last Taken 11/18/20] simvastatin 40 mg tablet 40 mg PO QHS #90 tab 05/07/20 [Rx Last Taken 11/18/20] lisinopril 5 mg tablet 5 mg PO BID #180 tab 07/26/20 [Rx Last Taken 11/18/20] nitroglycerin 0.4 mg sublingual tablet 0.4 mg SUBLINGUAL Q5-15M PRN #25 tab 09/03/20 [Rx Last Taken Unknown] pptjnwn-xbarafcwo-mvhc 1 tab PO DAILY 09/17/20 [History Last Taken 11/18/20] docusate sodium 100 mg PO BID PRN #60 tab 11/19/20 [Rx Last Taken Unknown] clopidogrel 75 mg PO DAILY 07/12/21 [History Last Taken 07/13/21] isosorbide mononitrate 60 mg PO 1200 07/12/21 [History Last Taken Unknown] metoprolol tartrate 50 mg PO BID 07/12/21 [History Last Taken Unknown] ciprofloxacin HCl [Cipro] 500 mg PO BID #10 tab 07/19/21 [Rx Last Taken Unknown] Allergy/AdvReac Type Severity Reaction Status Date / Time No Known Allergies Allergy Verified 07/19/21 06:27 Surgical History (Updated 07/12/21 @ 10:21 by Nori Yeung) History of cardiac catheterization (~04/18/16) Hx of appendectomy Hx of hysterectomy Hx of local excision of skin lesion Social History Smoking Status: Never smoker alcohol intake: current substance use type: does not use Vital Signs Vital Signs Vital Signs: 07/19/21 06:28 Temperature 97.3 F L Temperature Source Temporal Pulse Rate 65 Respiratory Rate 16 Respiratory Pattern Normal Blood Pressure 168/60 H Blood Pressure Mean 96 Blood Pressure Source Monitor Blood Pressure Position Semi-Fowlers Blood Pressure Location Right Arm Pulse Ox 98 Oxygen Delivery Method Room Air Weight Weight: 55.338 kg Body Mass Index (BMI) 20.2
--- NOTE | 2021-07-19 08:05 | PCM.DC ---
Discharge Instructions Diet Discharge Diet: No restrictions Activity Discharge Activity: Return to Normal Activity and May Not Drive (while taking narcotic pain medications.) Dressing / Incision Call your doctor if you observe: Fever of 101 or Higher Follow Up Care Please Follow Up With: John Driver MD When: Call [phone] for an appointment Test Results: Test results from this visit will be discussed in further detail at your follow-up appointment, if applicable. Discharge Plan Admission Primary Reason for Your Visit: injection of urethra Attending Provider: John Driver Primary Care Provider: João Natarajan Discharge Orders/Prescriptions Prescriptions: New ciprofloxacin HCl [Cipro] 500 mg tablet 500 mg PO BID Qty: 10 RF: 0 Continued cholecalciferol (vitamin D3) 25 mcg (1,000 unit) capsule 25 mcg PO DAILY RF: 0 nitroglycerin 0.4 mg tablet, sublingual 0.4 mg SUBLINGUAL Q5-15M PRN (Reason: chest pain) Qty: 25 RF: 3 multivitamin 1 EACH tablet 1 ea PO DAILY RF: 0 aspirin 81 MG tablet,delayed release (DR/EC) 81 mg PO QHS RF: 0 ascorbic acid (vitamin C) 500 MG tablet 500 mg PO DAILY@0800 RF: 0 glucosamine sulf-chondroitinSA 1 EACH capsule 1 tab PO BID RF: 0 eczyizn-yimfdwujp-vidi Tablet 1 tab PO DAILY RF: 0 docusate sodium 100 mg tablet 100 mg PO BID PRN (Reason: constipation) Qty: 60 RF: 1 clopidogrel 75 mg tablet 75 mg PO DAILY RF: 0 isosorbide mononitrate 60 mg tablet extended release 24 hr 60 mg PO 1200 RF: 0 metoprolol tartrate 50 mg tablet 50 mg PO BID RF: 0 simvastatin 40 mg tablet 40 mg PO QHS Qty: 90 RF: 4 lisinopril 5 mg tablet 5 mg PO BID Qty: 180 RF: 3 Referrals / Follow Up: João Natarajan MD [Primary Care Provider] - John Driver MD [STAFF PHYSICIAN] - Disposition Disposition (needs filled in before D/C Order can be placed): Home, Self Care
== END 2021-07-19 23:59 | disposition home or self-care (01) ==
LOC: SDC 05:58 → AC 05:59
PROVIDERS: PCP Family Medicine; Referring Provider Urology; Visit Provider Urology
PROC: 3E0K8GC Introduction of Other Therapeutic Substance into Genitourinary Tract, Via Natural or Artificial Opening Endoscopic (ICD-10-PCS; CPT 51715; principal; 2021-07-19 07:20)
DX: N36.42 Intrinsic sphincter deficiency (ISD) (principal); N39.3 Stress incontinence (female) (male); N32.81 Overactive bladder; I25.10 Atherosclerotic heart disease of native coronary artery without angina pectoris; I25.5 Ischemic cardiomyopathy; I10 Essential (primary) hypertension; E78.2 Mixed hyperlipidemia; I25.2 Old myocardial infarction; Z79.82 Long term (current) use of aspirin; Z79.899 Other long term (current) drug therapy
CPT/HCPCS: 51715; 00910; J7120; J2405

== ENCOUNTER → 2021-08-30 | Outpatient (CLI) | payer MEDICARE, OTHER, SELFPAY ==
--- NOTE | 2021-08-30 08:30 | BI_ITS ---
MAMMOGRAPHY - BILATERAL SCREENING REASON FOR EXAM: Female, 86 years old. Routine annual screening examination. PERTINENT HISTORY: Sister with breast cancer. Mother with breast cancer. TECHNIQUE: Digital bilateral breast milli (3D mammographic acquisition) in the CC and MLO projections. 2-D mediolateral oblique (MLO) and craniocaudad (CC) views of both breasts were obtained. CAD: Full Field Digital Mammography with Computer Added Detection was performed. COMPARISON: Comparison is made with prior study dated 08/29/2020 and 08/26/2019. FINDINGS: Breast Composition: The breasts are extremely dense, which lowers the sensitivity of mammography. There are no dominant masses or suspicious calcifications. No other significant abnormalities are identified. There has been no significant change since the prior study. BI/SCREENING MAMM (CAD), BILAT IMPRESSION: Stable bilateral screening mammogram. Yearly follow-up mammogram recommended. (A) ASSESSMENT CATEGORY: BIRADS Category 1: Negative. A letter regarding these results will be sent to the patient by the facility within 30 days. Approximately 10% of breast cancers are not detected by mammography. A normal mammogram should not delay biopsy of a clinically suspicious abnormality. [id number] Electronically Signed: Herberth Cuello MD at 9:03 EDT ,
== END | disposition home or self-care (01) ==
LOC: OPBI 08:29
PROVIDERS: PCP Family Medicine; Referring Provider Family Medicine; Visit Provider Family Medicine
DX: Z12.31 Encounter for screening mammogram for malignant neoplasm of breast (principal)
CPT/HCPCS: 77067

== ENCOUNTER → 2021-10-10 | Outpatient (CLI) | payer MEDICARE, OTHER, SELFPAY ==
[2021-10-10 08:30] LABS: Absolute Lymphocyte Count 1.57 X10^3/uL (0.83-4.51); Absolute Neutrophil Count 2.9 X10^3/uL (2.0-7.7); Basophil# 0.07 X10^3/uL; Basophil% 1.3 % (0-1); Eosinophil# 0.18 X10^3/uL; Eosinophils% 3.3 % (0-5); Hematocrit 40.7 % (37-47); Hemoglobin 13.5 g/dL (12.0-15.0); Lymphocyte # 1.57 X10^3/ul (0.83-4.51); Lymphocyte % 29.1 % (19-41); Mean Corp Hgb Conc 33.2 g/dL (32-36); Mean Corpuscular Hgb 31.3 pg (27.0-32.0); Mean Corpuscular Volume 94.4 fL (81-99); Mean Platelet Vol. 9.9 fl (6.2-12.0); NRBC Flagged by Analyzer 0 % (0-5); Neutrophil # 2.86 X10^3/uL (2.7-7.7); Neutrophil % 53.1 % (47-70); Platelet Count 205 K/mm3 (150-450); RBC Distribution Width CV 13.2 % (11.6-14.6); RBC Distribution Width SD 46.5 fl (35.1-43.9); Red Blood Count 4.31 M/mm3 (4.2-5.4); White Blood Count 5.4 K/mm3 (4.4-11.0)
[2021-10-10 08:52] LABS: Microalbumin,Random Urine 26.6 mg/L (NO RANGE EST.); Microalbumin:Creatinine Ratio 26.1 mg/g CRE (<30 mg/g CRE)
[2021-10-10 08:53] LABS: PTHIN 54.9 pg/mL (18.4-80.1)
[2021-10-10 08:56] LABS: Vitamin D,25 Hydroxy 61.8 ng/mL
[2021-10-10 09:05] LABS: ALB/GLOB Ratio 0.9 RATIO (0.9-2.4); AST(SGOT) 21 U/L (15-37); Alanine Aminotransfer ALT/SGPT 21 U/L (13-56); Albumin, Serum 3.4 g/dL (3.2-5.0); Alkaline Phosphatase 107 U/L (45-117); Anion Gap 4 (5-15); BUN 21 mg/dL (7-18); BUN/Creat Ratio 23.9 RATIO (10-20); Bilirubin, Direct 0.11 mg/dL (0.00-0.30); Calcium,Total 8.7 mg/dL (8.5-10.1); Chloride 108 mmol/L (98-107); Cholesterol 192 mg/dL (200); Creatinine, Serum 0.88 mg/dL (0.55-1.02); EST Glomerular Filtration Rate 65 mL/min (>60); Est Glom Filt Rate - Afr Amer 78 mL/min (>60); Globulin 3.8 g/dL (2.2-4.2); Glucose 104 mg/dL (74-106); High Density Lipoprotein 40 mg/dL; Potassium 4.5 mmol/L (3.5-5.1); Protein, Total 7.2 g/dL (6.4-8.2); Sodium Level 141 mmol/L (136-145); T4 Free Direct 1.01 ng/dL (0.76-1.46); Triglycerides 136 mg/dL; Very Low Density Lipoprotein 27 mg/dL (5-40)
== END | disposition home or self-care (01) ==
LOC: LAB 07:59
PROVIDERS: PCP Family Medicine; Referring Provider Internal Medicine Cardiovascular Disease; Visit Provider Internal Medicine Cardiovascular Disease
DX: I10 Essential (primary) hypertension (principal); M85.80 Other specified disorders of bone density and structure, unspecified site; E03.9 Hypothyroidism, unspecified
CPT/HCPCS: 80053; 80061; 82043; 82248; 82306; 82570; 83970; 84439; 84443; 85025

== ENCOUNTER 2021-10-23 11:07 | Outpatient (CLI) | payer MEDICARE, OTHER, SELFPAY ==
--- NOTE | 2021-10-23 11:14 | BD_ITS ---
STUDY: DUAL ENERGY X-RAY ABSORPTIOMETRY / DXA REASON FOR EXAM: Female, 86 years old. M85.80. Patient is postmenopausal. TECHNIQUE: Bone Mineral Density (BMD) measurements of lumbar spine and bilateral hips were obtained. COMPARISON: Comparison is made with prior study 01/15/2017. FINDINGS: Lumbar Spine (L1-L4): g/cm2 (1.309) / T-score (2.5) / Z-score (5.3) Findings are suggestive of normal bone density with a low fracture risk. Left Femur Total: g/cm2 (0.934) / T-score (0.1) / Z-score (2.3) Left Femoral Neck: g/cm2 (0.662) / T-score (-1.7) / Z-score (0.8) Right Femur Total: g/cm2 (0.949) / T-score (0.1) / Z-score (2.4) Right Femoral Neck: g/cm2 (0.704) / T-score (-1.3) / Z-score (1.2) The T-Scores on the most recent prior examination were: Lumbar Spine (L1-L4): There has been improvement of bone density since the previous examination. Left Femur Total: which represents an improvement of 1.4%. Right Femur Total: which represents an improvement of 1.5%. BD/Dexa Bone Density Study IMPRESSION: The patient is considered osteopenic as outlined below according to World Arnaud Organization (WHO) criteria with a moderate fracture risk. There has been improvement of bone density since the previous examination. Reference Information: The T-score is the number of standard deviations above or below the standard which is normal for young adults at their peak bone mineral density. The World Health Organization (WHO) interprets the T-scores as follows: Above -1 Normal bone density Between -1 and -2.5 Osteopenia Equal to / or below -2.5 Osteoporosis As a practical clinical guideline, osteopenia may be graded as follows: Mild -1 through -1.5 Moderate -1.6 through -2.0 Severe -2.1 through -2.4 The Z-score is the number of standard deviations above or below age-matched controls. A Z-score of less than -1.5 would be considered abnormal. References: 1. NIH Osteoporosis and Related Bone Diseases www osteo.org 2. International Society for Clinical Densitometry www iscd.org 3. National Osteoporosis Foundation www nof.org Electronically Signed: Herberth Cuello MD at 13:26 EDT ,
== END 2021-10-23 23:59 | disposition home or self-care (01) ==
LOC: OPBD 11:08
PROVIDERS: PCP Family Medicine; Visit Provider Family Medicine
DX: M85.80 Other specified disorders of bone density and structure, unspecified site (principal); Z78.0 Asymptomatic menopausal state
CPT/HCPCS: 77080

== ENCOUNTER 2022-04-16 22:02 | Emergency (ER) | payer MEDICARE, OTHER, SELFPAY ==
[2022-04-16 22:03] VITALS: BP 146/92; PULSE 84; RESP 25; TEMP 36.6; O2SAT 98; BMI 20.8
--- NOTE | 2022-04-16 22:30 | EKG12_ITS ---
Test Reason : DYSRHYTHMIA Blood Pressure : / mmHG Vent. Rate : 082 BPM Atrial Rate : 082 BPM P-R Int : 138 ms QRS Dur : 076 ms QT Int : 374 ms P-R-T Axes : -51 044 069 degrees QTc Int : 436 ms Unusual P axis, possible ectopic atrial rhythm Abnormal ECG When compared with ECG of 18-APR-2016 09:53, Ectopic atrial rhythm has replaced Sinus rhythm Confirmed by AUTUMN CHAVEZ, LASHA ([id number]), associate entertainment editor BANG REDMAN ([id number]) on 04/22/2022 11:38:15 AM Referred By: SINDY Confirmed By:LASHA LEYVA MD
--- NOTE | 2022-04-16 22:43 | EDS_ITS ---
HPI History of Present Illness Chief Complaint: Syncope Narrative Narrative: Patient is an 86-year-old female with past medical history of Takotsubo cardiomyopathy coronary artery disease hyperlipidemia and premature interatrial contractions. She states that this evening she was sitting around with friends at a table while they were eating and talking. She states while she was sitting there she noticed that her vision began to become wavy. According to friends the patient was just sitting and the next thing they know she put her head down and became unresponsive. They state they lowered her to the floor and they report there was no tonic-clonic shaking activity. They state for about 60 to 90 seconds at the patient was unresponsive to verbal and tactile stimuli. However she spontaneously awoke and when she did she knew who she was and where she was at. Patient states that there was no palpitations or chest pain prior to the event. She denies any recent change in medication or bouts of nausea vomiting or diarrhea to suggest dehydration. She states she feels normal at this time but with the syncopal event was brought in for evaluation. [facility] Medical History Alcohol use Atherosclerotic heart disease of [place] coronary artery without angina pectoris Bladder disease Hypertension Hypothyroidism Ischemic cardiomyopathy Mixed hyperlipidemia Nonrheumatic mitral (valve) prolapse Old myocardial infarction Sinus bradycardia Takotsubo cardiomyopathy Urgency-frequency syndrome Wears glasses Wears hearing aid Home Medications ascorbic acid (vitamin C) 500 mg tablet 500 mg PO DAILY@0800 04/18/16 [History Last Taken 11/18/20] aspirin 81 mg tablet,delayed release 81 mg PO QHS 04/18/16 [History Last Taken 07/13/21] glucosamine sulfate 250 mg-chondroitin sulfate A 200 mg capsule 1 tab PO BID 04/18/16 [History Last Taken 11/18/20] multivitamin 1 ea PO DAILY 04/18/16 [History Last Taken 11/18/20] cholecalciferol (vitamin D3) 25 mcg (1,000 unit) capsule 25 mcg PO DAILY 02/17/20 [History Last Taken 11/18/20] nitroglycerin 0.4 mg sublingual tablet 0.4 mg sublingual Q5-15M PRN chest pain #25 tabs 09/03/20 [Rx Last Taken Unknown] xlejqkk-mgukewpfv-xjyl tablet 1 tab PO DAILY 09/17/20 [History Last Taken 11/18/20] docusate sodium 100 mg tablet 100 mg PO BID PRN constipation #60 tabs 11/19/20 [Rx Last Taken Unknown] clopidogrel 75 mg tablet 75 mg PO DAILY 07/12/21 [History Last Taken 07/13/21] isosorbide mononitrate 60 mg tablet,extended release 24 hr 60 mg PO 1200 07/12/21 [History Last Taken Unknown] lisinopril 5 mg tablet 5 mg PO BID #180 tabs 07/22/21 [Rx Last Taken Unknown] simvastatin 40 mg tablet 40 mg PO QHS #90 tabs 08/02/21 [Rx Last Taken Unknown] levocetirizine 5 mg tablet 5 mg PO QPM PRN Allergy Symptoms 09/02/21 [History Last Taken Unknown] metoprolol tartrate 50 mg tablet See Rx Instructions .Route .COMPLEX #180 TABLETS 02/24/22 [Rx Last Taken Unknown] Allergy/AdvReac Type Severity Reaction Status Date / Time No Known Allergies Allergy Verified 04/08/22 09:11 Surgical History History of cardiac catheterization (~04/18/16) Hx of appendectomy Hx of hysterectomy Hx of local excision of skin lesion Social History Smoking Status: Never smoker alcohol intake: current substance use type: does not use ROS ROS ED Constitutional Constitutional ED: Denies chills or fever(s) Eyes Eyes: Reports change in vision ENT ENT ED: Denies sore throat Cardiovascular Cardiovascular: Reports other Details: Positive syncope ; Denies chest pain, palpitations or racing heartbeat Respiratory/Chest Respiratory/Chest: Denies cough or dyspnea Gastrointestinal Gastrointestinal: Denies abdominal pain, diarrhea, nausea or vomiting Genitourinary Genitourinary ED: Denies dysuria Musculoskeletal Musculoskeletal: Denies myalgias Integumentary Denies rash Neurologic Neurologic: Denies headache(s) Hematologic/Lymphatic Hematologic/Lymphatic: Denies easy bleeding or easy bruising EXAM Physical Exam Const Vital Signs: 04/16/22 22:03 04/16/22 22:08 04/16/22 22:54 Temperature 97.9 F Temperature Source Temporal Pulse Rate 84 Pulse Rate [Lying] 79 Pulse Rate [Sitting (for 1 minute prior to obtaining)] 82 Pulse Rate [Standing (for 1 minute prior to obtaining)] 90 Respiratory Rate 25 H Respiratory Effort Normal Non-Labored Respiratory Pattern Normal Blood Pressure 146/92 H Blood Pressure [Lying] 133/57 H Blood Pressure [Sitting (for 1 minute prior to obtaining)] 136/50 H Blood Pressure [Standing (for 1 minute prior to obtaining)] 135/90 H Blood Pressure Mean 110 Blood Pressure Mean [Lying] 82 Blood Pressure Mean [Sitting (for 1 minute prior to obtaining)] 78 Blood Pressure Mean [Standing (for 1 minute prior to obtaining)] 105 Pulse Ox 98 Oxygen Delivery Method Room Air 04/17/22 01:01 Temperature Temperature Source Pulse Rate 88 Pulse Rate [Lying] Pulse Rate [Sitting (for 1 minute prior to obtaining)] Pulse Rate [Standing (for 1 minute prior to obtaining)] Respiratory Rate Respiratory Effort Respiratory Pattern Blood Pressure 123/56 H Blood Pressure [Lying] Blood Pressure [Sitting (for 1 minute prior to obtaining)] Blood Pressure [Standing (for 1 minute prior to obtaining)] Blood Pressure Mean 78 Blood Pressure Mean [Lying] Blood Pressure Mean [Sitting (for 1 minute prior to obtaining)] Blood Pressure Mean [Standing (for 1 minute prior to obtaining)] Pulse Ox 97 Oxygen Delivery Method Room Air Positive well nourished and well developed General Appearance ED: well developed HEENT Reports moist mucous membranes HEENT Narrative: No tongue or cheek biting noted. Head is normocephalic and atraumatic Eyes PERRL and EOMs intact bilaterally General Eye ED: Negative for pale conjunctiva Neck supple Resp normal respiratory effort and clear to auscultation bilaterally Cardio regular rate and regular rhythm Rate: other Other Details: Regular rate and rhythm with occasional ectopic beat noted GI normal to inspection, nondistended, normoactive bowel sounds, non-tender, non- distended and no masses GI Narrative: No voluntary guarding or rigidity no pulsatile mass Auscultation: normoactive bowel sounds Palpation: soft Extremity normal to inspection Extremity Narrative: No asymmetric edema no pitting edema negative Homans' sign bilaterally Neuro oriented x3 and CN's II-XII intact bilaterally Neuro Narrative: Cranial nerves II through XII are grossly intact there are no focal neurologic deficits. No pronator drift no dysmetria no truncal ataxia. NIH stroke scale score of 0 Sensorium / Orientation: alert Psych mental status grossly normal Skin no rashes or lesions noted and skin turgor normal MDM MDM MDM Narrative Medical decision making narrative: Patient presented to the ER mildly hypertensive but otherwise with stable vitals. Her history of a syncopal event while sitting is concerning for an abnormal heart rhythm and secondary to this she was placed on the telemetry monitor and cardiac work-up was obtained. Blood work showed mild dehydration with mild elevation to her BUN and creatinine from baseline. Otherwise there is no clinically significant changes. Orthostatic vitals were obtained and were technically negative. However because of the elevation to her BUN and creatinine she was given 1 L fluid. Following this she was able to stand and ambulate with a steady gait and no bouts of syncope. Therefore this time as the patient's only had 1 bout of syncope and we have not caught any type of true cardiac dysrhythmia and she has no need for blood transfusion or no acute kidney injury or severe electrolyte derangement there is no need for admission. Patient can be discharged home and can follow-up with her commercial litigation attorney for the outpatient testing that she has scheduled for later this week. Plan of care was discussed with the patient and her friend and both are agreeable to the plan. Lab Data Attestation: I reviewed the patient's lab results. Labs: Laboratory Results - last 24 hr 04/16/22 04/16/22 22:50 22:50 WBC 8.3 RBC 4.29 Hgb 13.2 Hct 40.0 MCV 93.2 MCH 30.8 MCHC 33.0 RDW Std Deviation 45.8 H RDW Coeff of Angelo 13.4 Plt Count 210 MPV 10.1 Immature Gran % (Auto) 0.400 Neut % (Auto) 73.9 H Lymph % (Auto) 14.7 L [place] % (Auto) 8.8 Eos % (Auto) 1.2 Baso % (Auto) 1.0 Absolute Neuts (auto) 6.1 Absolute Lymphs (auto) 1.22 Nucleated RBC % 0 Sodium 137 Potassium 4.7 Chloride 104 Carbon Dioxide 28.0 Anion Gap 5 BUN 28 H Creatinine 1.09 H Estim Creat Clear Calc 34.21 Est GFR (MDRD) Af Amer 61 Est GFR (MDRD) Non-Af 51 L BUN/Creatinine Ratio 25.7 H Glucose 207 H Calcium 8.7 Magnesium 2.4 Troponin I High Sens 8 Radiography Diagnostic Testing: Clinical Impression(s) from Imaging Studies Chest X-Ray 04/16/22 22:45 IMPRESSION: No radiographic evidence of acute cardiopulmonary disease. Electronically Signed: Esa Toussaint MD at 23:00 EST , 1 view chest x-ray as interpreted by the emergency medicine physician reveals no acute infiltrate pneumothorax or pleural effusion Discharge Plan Triage Chief Complaint: Syncope ED Provider: Harry Campa Dx/Rx/DC Orders Clinical Impression: Syncope, Mixed hyperlipidemia, PAC (premature atrial contraction), Mild dehydration Instructions: What Is Syncope, Causes of Syncope Prescriptions: No Action cholecalciferol (vitamin D3) 25 mcg (1,000 unit) capsule 25 mcg PO DAILY nitroglycerin 0.4 mg tablet, sublingual 0.4 mg SUBLINGUAL Q5-15M PRN (Reason: chest pain) Qty: 25 3RF levocetirizine 5 mg tablet 5 mg PO QPM PRN (Reason: Allergy Symptoms) multivitamin 1 EACH tablet 1 ea PO DAILY Label Comments: Supplement aspirin 81 MG tablet,delayed release (DR/EC) 81 mg PO QHS Label Comments: [facility] ascorbic acid (vitamin C) 500 MG tablet 500 mg PO DAILY@0800 Label Comments: Supplement glucosamine sulf-chondroitinSA 1 EACH capsule 1 tab PO BID Label Comments: Supplement wbpwfat-tcnnpziob-rcqf Tablet 1 tab PO DAILY docusate sodium 100 mg tablet 100 mg PO BID PRN (Reason: constipation) Qty: 60 1RF clopidogrel 75 mg tablet 75 mg PO DAILY isosorbide mononitrate 60 mg tablet extended release 24 hr 60 mg PO 1200 lisinopril 5 mg tablet 5 mg PO BID Qty: 180 3RF simvastatin 40 mg tablet 40 mg PO QHS Qty: 90 4RF metoprolol tartrate 50 mg tablet See Rx Instructions .ROUTE .COMPLEX Qty: 180 3RF Dose Instruction: TAKE 1 TABLET TWICE A DAY Rx Instructions: TAKE 1 TABLET TWICE A DAY Primary Care Provider: João Natarajan Referrals: João Natarajan MD [Primary Care Provider] - Activity Restrictions/Additional Instructions: Please follow-up with your commercial litigation attorney and/or family doctor for repeat evaluation and return to the ER should you have any further concerns Disposition Disposition: Home, Self Care
--- NOTE | 2022-04-16 22:45 | RAD_ITS ---
INDICATION: Syncope EXAMINATION/TECHNIQUE: X-RAY - XR Chest 1 View COMPARISON: 04/18/2016 FINDINGS: LINES/DEVICES: None. LUNGS: Emphysematous. No focal consolidation or large pleural effusion. MEDIASTINUM AND CARDIOVASCULAR STRUCTURES: Cardiac silhouette not enlarged. Central airways and mediastinal contour are unremarkable. RAD/Chest 1 View (Portable) IMPRESSION: No radiographic evidence of acute cardiopulmonary disease. Electronically Signed: Esa Toussaint MD at 23:00 EST ,
[2022-04-16 22:54] VITALS: BP 133/57; BP 135/90; BP 136/50; PULSE 79; PULSE 82; PULSE 90
[2022-04-16 23:01] LABS: Absolute Lymphocyte Count 1.22 X10^3/uL (0.83-4.51); Absolute Neutrophil Count 6.1 X10^3/uL (2.0-7.7); Basophil# 0.08 X10^3/uL; Eosinophils% 1.2 % (0-5); Hemoglobin 13.2 g/dL (12.0-15.0); Lymphocyte # 1.22 X10^3/ul (0.83-4.51); Lymphocyte % 14.7 % (19-41); Mean Corpuscular Hgb 30.8 pg (27.0-32.0); Mean Corpuscular Volume 93.2 fL (81-99); Mean Platelet Vol. 10.1 fl (6.2-12.0); Monocyte# 0.73 X10^3/uL; Monocyte% 8.8 % (0-10); NRBC Flagged by Analyzer 0 % (0-5); Neutrophil # 6.13 X10^3/uL (2.7-7.7); Neutrophil % 73.9 % (47-70); Platelet Count 210 K/mm3 (150-450); RBC Distribution Width CV 13.4 % (11.6-14.6); RBC Distribution Width SD 45.8 fl (35.1-43.9); Red Blood Count 4.29 M/mm3 (4.2-5.4); White Blood Count 8.3 K/mm3 (4.4-11.0)
[2022-04-16 23:22] LABS: Anion Gap 5 (5-15); BUN 28 mg/dL (7-18); BUN/Creat Ratio 25.7 RATIO (10-20); Calcium,Total 8.7 mg/dL (8.5-10.1); Chloride 104 mmol/L (98-107); Creatinine, Serum 1.09 mg/dL (0.55-1.02); EST Glomerular Filtration Rate 51 mL/min (>60); Est Glom Filt Rate - Afr Amer 61 mL/min (>60); Estimated Creatinine Clearance 34.21 ml/min; Glucose 207 mg/dL (74-106); Magnesium 2.4 mg/dL (1.6-2.6); Potassium 4.7 mmol/L (3.5-5.1); Sodium Level 137 mmol/L (136-145); Troponin-I HS 8 pg/mL (3.0-54.0)
[2022-04-16] MEDS: 0.9% Normal Saline 1,000 ML 999 ML IV (23:53)
[2022-04-17 01:01] VITALS: BP 123/56; PULSE 88; O2SAT 97
[2022-04-17 02:00] VITALS: BP 135/58; PULSE 85; RESP 18; O2SAT 94
[2022-04-17 03:00] VITALS: BP 115/56; PULSE 89; RESP 18; O2SAT 94
[2022-04-17 04:00] VITALS: BP 101/46; PULSE 79; RESP 15; O2SAT 93
[2022-04-17 05:00] VITALS: BP 107/60; PULSE 88; RESP 18; O2SAT 94
== END 2022-04-17 06:12 | disposition home or self-care (01) ==
PROVIDERS: Emergency Provider Emergency Medicine; PCP Family Medicine; Visit Provider Emergency Medicine
DX: R55 Syncope and collapse (principal); E78.2 Mixed hyperlipidemia; I49.1 Atrial premature depolarization; E86.0 Dehydration; I10 Essential (primary) hypertension; I25.5 Ischemic cardiomyopathy; I25.10 Atherosclerotic heart disease of native coronary artery without angina pectoris; I25.2 Old myocardial infarction; Z79.82 Long term (current) use of aspirin; Z79.899 Other long term (current) drug therapy
CPT/HCPCS: 71045; 80048; 83735; 84484; 85025; 93005; 99285; J7030; A4216

== ENCOUNTER → 2022-04-17 | Outpatient (CLI) | payer MEDICARE, OTHER, SELFPAY ==
--- NOTE | 2022-04-17 08:44 | ECHOD_ITS ---
Reason For Study: Chest Pain Procedure This was a 2D Doppler, Color Flow transthoracic echocardiogram. The study was technically difficult. Exam performed in department. Left Ventricle Normal LV size. Left ventricular systolic function is normal. The estimated ejection fraction is 70 %. No evidence for diastolic dysfunction. No regional wall motion abnormalities noted. Right Ventricle Normal RV size. Normal systolic function. Atria Normal left atrium. Normal right atrium. No doppler evidence for ASD. Mitral Valve There is mild mitral annular calcification. Extension of the mitral annular calcification onto the base of the posterior mitral valve leaflet. Trivial mitral valve insufficiency. Tricuspid Valve Normal tricuspid valve. Trivial tricuspid valve insufficiency. Right ventricular systolic pressure estimated to be 33 mmHg. Aortic Valve Trisinus/trileaflet aortic valve. Mild focal aortic valve calcification. Pulmonic Valve The pulmonic valve is not well visualized. Great Vessels The aortic root is not well visualized. Pericardium/Pleural No pericardial effusion. MMode/2D Measurements & Calculations LVIDd: 3.7 cm IVSd: 0.66 cm LA dimension: 3.1 cm LVIDs: 2.4 cm LVPWd: 0.65 cm RVDd: 3.1 cm FS: 36.3 % LAV(MOD-bp): 28.3 ml LA A4 area: 10.1 cm2 RA A4 area: 9.1 cm2 LAV(MOD-bp) Indexed: 18.1 ml/m2 LAV(MOD-sp2): 34.1 ml LAV(MOD-sp4): 20.7 ml Time Measurements MV dec time: 0.23 sec Doppler Measurements & Calculations MV E max dheeraj: 83.1 cm/sec Lat Peak E' Dheeraj: 9.3 cm/sec Med Peak E' Dheeraj: 9.9 cm/sec MV A max dheeraj: 98.4 cm/sec E/E' lat: 8.9 E/E' med: 8.4 MV E/A: 0.84 MV V2 max: 109.2 cm/sec MV P1/2t max dheeraj: 97.9 cm/sec Ao V2 max: 95.6 cm/sec MV max P.8 mmHg MV P1/2t: 72.6 msec Ao max P.7 mmHg MV V2 mean: 66.0 cm/sec MV dec slope: 395.3 cm/sec2 MV mean P.0 mmHg MVA(P1/2t): 3.0 cm2 MV V2 VTI: 27.8 cm LV V1 max: 89.9 cm/sec PA V2 max: 71.4 cm/sec TR max dheeraj: 271.3 cm/sec LV V1 max P.2 mmHg TR max P.5 mmHg ECHO/Echo Complete Interpretation Summary The study was technically difficult. Left ventricular systolic function is normal. The estimated ejection fraction is 70 %. There is mild mitral annular calcification. Extension of the mitral annular calcification onto the base of the posterior mi tral valve leaflet Trivial mitral valve insufficiency. Trivial tricuspid valve insufficiency. Mild focal aortic valve calcification. Right ventricular systolic pressure estimated to be 33 mmHg. No evidence for diastolic dysfunction. Ordering Physician: Ivone Haro Referring Physician: João Natarajan Performed By: Romeo Gilmore RCS
--- NOTE | 2022-04-17 09:11 | STRESSREP ---
Stress Test Report Date: 04-17-2022 Procedure: Pharmacologic stress nuclear imaging study Indications: Chest pain; CAD; history of Takotsubo syndrome; MVP; PACs; syncope Consent: Per the patient Procedure: The patient underwent pharmacologic (Regadenoson 0.4mg ) evaluation with a peak heart rate of 102 beats per minute (76%predicted maximal heart rate) and a resting blood pressure of 140/78 mmHg and a peak blood pressure of 150/60 mmHg. The baseline ECG demonstrated normal sinus rhythm. The peak pharmacologic ECG demonstrated no obvious ECG changes. There were no cardiac dysrhythmias pretest, during pharmacologic infusion, or recovery. There was no complaint of chest discomfort during pharmacologic infusion or recovery. The examination was discontinued secondary to completion of protocol. Impression: 1. Pharmacologic (Regadenoson) evaluation 2. Peak pharmacologic ECG with no obvious ECG changes. 3. There were no cardiac dysrhythmias pretest, during pharmacologic infusion, or recovery. 4. Nuclear images pending Myocardial perfusion imaging study: Technique: The patient was injected with 11.6 millicuries of technetium 99m Cardiolite and subsequently rest SPECT Cardiolite nuclear imaging was obtained in the horizontal long, vertical long, and short axis views. The patient underwent pharmacologic (Regadenoson) evaluation with a peak heart rate of 102 beats per minute (76% percent predicted maximal heart rate) and a resting blood pressure of 140/78 mmHg and a peak blood pressure of 150/60 mmHg. The patient was injected with 31.3 millicuries of technetium 99m Cardiolite and subsequently stress SPECT Cardiolite nuclear imaging was obtained in the horizontal long, vertical long, and short axis views. A gated Cardiolite study at peak stress was obtained. Interpretation: Rest and stress SPECT Cardiolite nuclear imaging status post realignment, normalization, and attenuation correction demonstrate relative uniform tracer uptake and myocardial perfusion appearing within normal limits. There is end systolic thickening and brightening. The gated Cardiolite study demonstrates myocardial thickening and inward wall motion. The reported LVEF is 97%. Impression: 1. Rest and stress SPECT Cardiolite nuclear imaging demonstrate relative uniform tracer uptake and myocardial perfusion appearing within normal limits. 2. The gated Cardiolite study reports an LVEF of 97%. This note was generated with [employer] software. It may contain incorrect words, spelling, and punctuation that were not noted in checking the note before signing.
== END | disposition home or self-care (01) ==
LOC: CVS 06:09
PROVIDERS: PCP Family Medicine; Visit Provider Physician Assistant Medical
DX: R07.89 Other chest pain (principal); I20.9 Angina pectoris, unspecified; I49.1 Atrial premature depolarization
CPT/HCPCS: 78452; 93017; 93225; 93226; 93306; A9500; A4216; J2785

== ENCOUNTER → 2022-12-26 | Outpatient (CLI) | payer MEDICARE, OTHER, SELFPAY ==
[2022-12-26 10:29] LABS: ALB/GLOB Ratio 0.9 RATIO (0.9-2.4); AST(SGOT) 25 U/L (15-37); Alanine Aminotransfer ALT/SGPT 30 U/L (13-56); Albumin, Serum 3.3 g/dL (3.2-5.0); Alkaline Phosphatase 110 U/L (45-117); Anion Gap 4 (5-15); BUN 21 mg/dL (7-18); BUN/Creat Ratio 23.1 RATIO (10-20); Calcium,Total 8.5 mg/dL (8.5-10.1); Chloride 107 mmol/L (98-107); Cholesterol 151 mg/dL (200); Creatinine, Serum 0.91 mg/dL (0.55-1.02); EST Glomerular Filtration Rate 62 mL/min (>60); Est Glom Filt Rate - Afr Amer 75 mL/min (>60); Globulin 3.6 g/dL (2.2-4.2); Glucose 99 mg/dL (74-106); High Density Lipoprotein 52 mg/dL; Magnesium 2.6 mg/dL (1.6-2.6); Potassium 4.2 mmol/L (3.5-5.1); Protein, Total 6.9 g/dL (6.4-8.2); Sodium Level 140 mmol/L (136-145); Thyroid Stim Hormone (TSH) 4.02 uIU/mL (0.358-3.74); Triglycerides 122 mg/dL; Very Low Density Lipoprotein 24 mg/dL (5-40)
[2022-12-26 10:35] LABS: Vitamin D,25 Hydroxy 85.7 ng/mL
[2022-12-26 10:38] LABS: Microalbumin,Random Urine 15.6 mg/L (NO RANGE EST.); Microalbumin:Creatinine Ratio 13.4 mg/g CRE (<30 mg/g CRE)
== END | disposition home or self-care (01) ==
LOC: MFPLAB 08:28
PROVIDERS: PCP Family Medicine; Visit Provider Family Medicine
DX: E78.5 Hyperlipidemia, unspecified (principal); M85.80 Other specified disorders of bone density and structure, unspecified site; I10 Essential (primary) hypertension; E03.9 Hypothyroidism, unspecified
CPT/HCPCS: 36415; 80053; 80061; 82043; 82306; 82570; 83735; 84439; 84443

== ENCOUNTER 2023-04-23 11:05 | Emergency (ER) | payer MEDICARE, OTHER, SELFPAY ==
[2023-04-23] VITALS (7 sets, daily range): BP systolic 132–164; BP diastolic 69–99; PULSE 54–69; RESP 16–18; TEMP 36.2; O2SAT 94–99; BMI 19.0
--- NOTE | 2023-04-23 11:19 | ED.VIS.CHEST ---
HPI History of Present Illness Chief Complaint: Chest Pain [facility] Medical History Alcohol use Atherosclerotic heart disease of [place] coronary artery without angina pectoris Bladder disease Hypertension Hypothyroidism Ischemic cardiomyopathy Mixed hyperlipidemia Nonrheumatic mitral (valve) prolapse Old myocardial infarction Sinus bradycardia Takotsubo cardiomyopathy Urgency-frequency syndrome Wears glasses Wears hearing aid Home Medications ascorbic acid (vitamin C) 500 mg tablet 500 mg PO DAILY@0800 04/18/16 [History Last Taken 11/18/20] aspirin 81 mg tablet,delayed release 81 mg PO QHS 04/18/16 [History Last Taken 07/13/21] glucosamine sulfate 250 mg-chondroitin sulfate A 200 mg capsule 1 tab PO BID 04/18/16 [History Last Taken 11/18/20] multivitamin 1 ea PO DAILY 04/18/16 [History Last Taken 11/18/20] cholecalciferol (vitamin D3) 25 mcg (1,000 unit) capsule 25 mcg PO DAILY 02/17/20 [History Last Taken 11/18/20] vqdfbdg-ccdmdiwmf-ylcp tablet 1 tab PO DAILY 09/17/20 [History Last Taken 11/18/20] docusate sodium 100 mg tablet 100 mg PO BID PRN constipation #60 tabs 11/19/20 [Rx Last Taken Unknown] levocetirizine 5 mg tablet 5 mg PO QPM PRN Allergy Symptoms 09/02/21 [History Last Taken Unknown] clopidogrel 75 mg tablet See Rx Instructions .Route .COMPLEX #90 TABLETS 05/23/22 [Rx Last Taken Unknown] isosorbide mononitrate 60 mg tablet,extended release 24 hr 60 mg PO 1200 #90 tabs 05/26/22 [Rx Last Taken Unknown] lisinopril 5 mg tablet 5 mg PO BID #180 tabs 07/16/22 [Rx Last Taken Unknown] simvastatin 40 mg tablet 40 mg PO QHS #90 tabs 10/27/22 [Rx Last Taken Unknown] nitroglycerin 0.4 mg sublingual tablet 0.4 mg sublingual Q5-15M PRN chest pain #25 tabs 11/04/22 [Rx Last Taken Unknown] metoprolol tartrate 50 mg tablet See Rx Instructions .Route .COMPLEX #180 TABLETS 02/17/23 [Rx Last Taken Unknown] Allergy/AdvReac Type Severity Reaction Status Date / Time No Known Allergies Allergy Verified 04/23/23 11:06 Surgical History History of cardiac catheterization (~04/18/16) Hx of appendectomy Hx of hysterectomy Hx of local excision of skin lesion Social History Smoking Status: Never smoker alcohol intake: current substance use type: does not use EXAM Physical Exam Const Vital Signs: 04/23/23 11:06 04/23/23 11:15 04/23/23 11:15 Temperature 97.2 F L Temperature Source Temporal Pulse Rate 69 69 Respiratory Rate 18 18 Respiratory Effort Normal Blood Pressure 132/71 H 144/89 H Blood Pressure Mean 91 107 Pulse Ox 97 97 Oxygen Delivery Method Room Air 04/23/23 11:32 04/23/23 12:05 04/23/23 13:00 Temperature Temperature Source Pulse Rate 58 L 55 L Respiratory Rate 16 18 Respiratory Effort Blood Pressure 134/69 H 164/69 H Blood Pressure Mean 90 100 Pulse Ox 94 97 97 Oxygen Delivery Method Room Air Room Air Room Air 04/23/23 14:00 Temperature Temperature Source Pulse Rate 54 L Respiratory Rate 16 Respiratory Effort Blood Pressure 158/99 H Blood Pressure Mean 118 Pulse Ox 97 Oxygen Delivery Method Room Air Heart Score History: Slightly/Non-Suspicious ECG: Normal Age: >/= 65 years Risk Factors: >/= 3 Risk Factors or History of CAD Troponin: </= Normal Limit Score: 4 MDM MDM MDM Narrative Medical decision making narrative: HISTORY OF PRESENT ILLNESS: 87-year-old female presents with intermittent chest pain. Notes she has had this for the last month. Notes is her ninth episode. She denies pain at this time. Notes right-sided sharp light soft pain. The patient denies recent surgery in the last 4 weeks or immobilization in the last 3 days, denies previous diagnosis of DVT or PE, hemoptysis, unilateral leg swelling or malignancy with treatment the last 6 months or palliative. No estrogen use noted. Patient denies sudden onset of pain, no tearing sensation, no migratory symptoms, no new numbness, weakness or loss of sensation. Patient denies family history or personal history of Connective tissue disorders (Marfan's Syndrome, Jamison Danlos etc) REVIEW OF SYSTEMS: Pertinent positives: Chest pain Pertinent negatives: Syncope, shortness of breath, fever PHYSICAL EXAM: Nursing triage notes reviewed, Vital signs reviewed Constitutional: please see mdm HENT: MMM Eyes: Pupils equal round and reactive to light, Extraocular muscles intact Neck: No stridor, no JVD, full neck ROM Lungs: Clear to auscultation, No wheezing or rales. No increased work of breathing, no conversational dyspnea, no accessory muscle use, no nasal flaring. No respiratory distress noted Heart: Regular rate and rhythm, No murmurs, No rubs and No gallops, 2+ distal pulses (radial, femoral, posterior tibial) in all extremities Abdomen: Soft, there is no tenderness, rigidity, rebound or guarding, no obvious peritoneal signs, no palpable pulsatile abdominal masses, no auscultated abdominal bruit : No CVAT Extremities: No edema Neuro: No focal neurological deficits, cranial nerves II through XII intact, 5/5 strength in all extremities. Intact sensation to light touch in all extremities, 2+ reflexes bilateral patella tendons. Normal gait. No ataxia. Skin: No rash or lesions noted MEDICAL DECISION MAKING: Chief Complaint: Chest pain External records reviewed: last ED visit was 1 year ago. At this time she was being evaluated for syncope. Her blood work including troponin, EKG electrolyte panel and CBC was negative. She was discharged home. Echocardiogram from 2022 shows ejection fraction 70%. Prior stress test reviewed. Stress test from 04/17/2022 shows no cardiac dysrhythmias, no obvious EKG changes that would suggest ischemia Factors affecting care: Takotsubo cardiomyopathy, hyperlipidemia, CAD, ischemic cardiomyopathy, premature atrial contractions, hypertension MDM Narrative: Patient was hemodynamically stable, afebrile, nontoxic-appearing. Exam without focal cardiopulmonary abnormalities. I considered pulm embolism however the patient is low risk Wells score, not tachycardic with no stigmata of VTE. I have low suspicion for PE at this time. I considered aortic dissection of the patient had no historical factors, clinical exam findings to suggest aortic dissection. I considered the following differential diagnosis: ACS, arrhythmia, anemia, electrolyte disturbance, CHF, PE, aortic dissection I obtained a broad lab and imaging workup to further elucidate the etiology the patient complaints ALL IMAGES (IF OBTAINED) HAVE BEEN PERSONALLY REVIEWED AND INTERPRETED BY MYSELF. EKG with normal sinus rhythm, normal axis, normal intervals, no STEMI CBC without leukocytosis, severe anemia, no thrombocytopenia. I have personally reviewed the patient's chest x-ray. Chest x-ray is unremarkable for pulmonary edema, pneumothorax, pneumonia or focal cardiopulmonary abnormality. High-sensitivity troponin is negative, no evidence of myocardial ischemia x 2 BMP without evidence of significant electrolyte abnormalities, no anion gap, no acute kidney injury. The synthesis of the patient's history, physical exam, labs images suggest no acute life-limiting etiology. Specifically there is no evidence of ACS. Patient's heart score is 2/2 age and risk factors however she had no chest pain at this time. Did offer admission given elevated heart score and elevated risk of MACE however patient who is alert and orient x 3 displayed capacity to make his own medical decisions chose to be discharged home for close outpatient follow-up with her primary doctor and/or financial rep for further outpatient evaluation specifically stress test. Strict return precautions were discussed. The patient and/or family, caregivers express understanding. The patient and/or family, caregivers agrees with the plan. Shared decision making: I will have a discussion with the patient and or visitors regarding risk/benefits of further testing or admission. They will be made aware of of the risk/benefits inherent in this decision they will be given the opportunity to voice understanding. Total critical care time today provided was at least 0 minutes. This excludes separately billable procedures. Critical care time (if documented) is secondary to the patient having high probability of clinically significant/life threatening deterioration in the patient's condition which required my urgent intervention. Impression: 1. Chest pain 2. History of CAD 3. History of hyperlipidemia Dispo: Discharge Lab Data Labs: Laboratory Results - last 24 hr 04/23/23 04/23/23 11:15 13:20 WBC 5.9 RBC 4.50 Hgb 13.6 Hct 41.0 MCV 91.1 MCH 30.2 MCHC 33.2 RDW Std Deviation 43.6 RDW Coeff of Angelo 13.1 Plt Count 225 MPV 10.2 Immature Gran % (Auto) 0.500 Neut % (Auto) 57.2 Lymph % (Auto) 24.1 Johnson % (Auto) 13.2 H Eos % (Auto) 3.1 Baso % (Auto) 1.9 H Absolute Neuts (auto) 3.4 Absolute Lymphs (auto) 1.41 Nucleated RBC % 0 Sodium 139 Potassium 4.4 Chloride 105 Carbon Dioxide 28.0 Anion Gap 6 BUN 26 H Creatinine 0.96 Estim Creat Clear Calc 34.89 Est GFR (MDRD) Af Amer 70 Est GFR (MDRD) Non-Af 58 L BUN/Creatinine Ratio 26.9 H Glucose 134 H Calcium 9.2 Troponin I High Sens 7 7 Radiography Diagnostic Testing: Clinical Impression(s) from Imaging Studies Chest X-Ray 04/23/23 11:25 IMPRESSION: Hyperinflation. No acute abnormality is seen. Electronically Signed: Herberth Cuello MD at 12:09 EST , Discharge Plan Triage Chief Complaint: Chest Pain ED Provider: To [facility] Dx/Rx/DC Orders Clinical Impression: Chest pain Instructions: Chest Pain [facility] Prescriptions: No Action cholecalciferol (vitamin D3) 25 mcg (1,000 unit) capsule 25 mcg PO DAILY levocetirizine 5 mg tablet 5 mg PO QPM PRN (Reason: Allergy Symptoms) nitroglycerin 0.4 mg tablet, sublingual 0.4 mg SUBLINGUAL Q5-15M PRN (Reason: chest pain) Qty: 25 3RF multivitamin 1 EACH tablet 1 ea PO DAILY Patient Comments: Supplement aspirin 81 MG tablet,delayed release (DR/EC) 81 mg PO QHS Patient Comments: [facility] ascorbic acid (vitamin C) 500 MG tablet 500 mg PO DAILY@0800 Patient Comments: Supplement glucosamine sulf-chondroitinSA 1 EACH capsule 1 tab PO BID Patient Comments: Supplement [id number] Tablet 1 tab PO DAILY docusate sodium 100 mg tablet 100 mg PO BID PRN (Reason: constipation) Qty: 60 1RF clopidogrel 75 mg tablet See Rx Instructions .ROUTE .COMPLEX Qty: 90 3RF Dose Instruction: TAKE 1 TABLET DAILY Rx Instructions: TAKE 1 TABLET DAILY isosorbide mononitrate 60 mg tablet extended release 24 hr 60 mg PO 1200 Qty: 90 3RF lisinopril 5 mg tablet 5 mg PO BID Qty: 180 3RF simvastatin 40 mg tablet 40 mg PO QHS Qty: 90 4RF metoprolol tartrate 50 mg tablet See Rx Instructions .ROUTE .COMPLEX Qty: 180 3RF Dose Instruction: TAKE 1 TABLET TWICE A DAY Rx Instructions: TAKE 1 TABLET TWICE A DAY Primary Care Provider: João Natarajan Referrals: João Natarajan MD [Primary Care Provider] - Activity Restrictions/Additional Instructions: Thank you for trusting us with your care today! Please take Tylenol (2 pills, 650 mg), ibuprofen (2 pills, 400 mg) every 6 hours as needed for pain and fever control. Please continue taking aspirin and Plavix. Please return to the emergency department if your symptoms change or worsen. Specifically develop chest pain, you lose consciousness if your symptoms change or worsen in any way. Please follow with your primary care physician for further outpatient evaluation and management. Disposition Disposition: Home, Self Care
--- NOTE | 2023-04-23 11:25 | RAD_ITS ---
STUDY: X-RAY CHEST REASON FOR EXAM: Female, 87 years old. Chest pain TECHNIQUE: Single AP portable view of the chest. COMPARISON: Comparison is made with prior study April 16, 2022. FINDINGS: EKG electrodes are seen. Hyperinflation. The lungs are clear. There is no demonstrated pleural abnormality. Normal size heart. Normal mediastinum and ashely. Normal visualized pulmonary arteries. There is atherosclerotic calcification of the aortic arch with tortuosity. There are diffuse degenerative changes of the visualized thoracic spine. Normal visualized ribs, clavicles, and shoulders. There is no demonstrated abnormality of the visualized soft tissue structures of the upper abdomen. RAD/Chest 1 View (Portable) IMPRESSION: Hyperinflation. No acute abnormality is seen. Electronically Signed: Herberth Cuello MD at 12:09 EST ,
[2023-04-23 11:33] LABS: Absolute Lymphocyte Count 1.41 X10^3/uL (0.83-4.51); Absolute Neutrophil Count 3.4 X10^3/uL (2.0-7.7); Basophil# 0.11 X10^3/uL; Basophil% 1.9 % (0-1); Eosinophil# 0.18 X10^3/uL; Eosinophils% 3.1 % (0-5); Hemoglobin 13.6 g/dL (12.0-15.0); Lymphocyte # 1.41 X10^3/ul (0.83-4.51); Lymphocyte % 24.1 % (19-41); Mean Corp Hgb Conc 33.2 g/dL (32-36); Mean Corpuscular Hgb 30.2 pg (27.0-32.0); Mean Corpuscular Volume 91.1 fL (81-99); Mean Platelet Vol. 10.2 fl (6.2-12.0); Monocyte# 0.77 X10^3/uL; Monocyte% 13.2 % (0-10); NRBC Flagged by Analyzer 0 % (0-5); Neutrophil # 3.35 X10^3/uL (2.7-7.7); Neutrophil % 57.2 % (47-70); Platelet Count 225 K/mm3 (150-450); RBC Distribution Width CV 13.1 % (11.6-14.6); RBC Distribution Width SD 43.6 fl (35.1-43.9); White Blood Count 5.9 K/mm3 (4.4-11.0)
[2023-04-23 11:51] LABS: Anion Gap 6 (5-15); BUN 26 mg/dL (7-18); BUN/Creat Ratio 26.9 RATIO (10-20); Calcium,Total 9.2 mg/dL (8.5-10.1); Chloride 105 mmol/L (98-107); Creatinine, Serum 0.96 mg/dL (0.55-1.02); EST Glomerular Filtration Rate 58 mL/min (>60); Est Glom Filt Rate - Afr Amer 70 mL/min (>60); Estimated Creatinine Clearance 34.89 ml/min; Glucose 134 mg/dL (74-106); Potassium 4.4 mmol/L (3.5-5.1); Sodium Level 139 mmol/L (136-145); Troponin-I HS (w/2H Reflex) 7 pg/mL (3.0-54.0)
[2023-04-23 13:26] LABS: Reflex Troponin-HS? (from REC) Y
[2023-04-23 13:46] LABS: Troponin-I HS 7 pg/mL (3.0-54.0)
== END 2023-04-23 14:56 | disposition home or self-care (01) ==
PROVIDERS: Emergency Provider Emergency Medicine; PCP Family Medicine; Visit Provider Emergency Medicine
DX: R07.9 Chest pain, unspecified (principal); I25.10 Atherosclerotic heart disease of native coronary artery without angina pectoris; I10 Essential (primary) hypertension; E78.5 Hyperlipidemia, unspecified; I25.2 Old myocardial infarction; Z79.899 Other long term (current) drug therapy; Z79.82 Long term (current) use of aspirin; Z79.02 Long term (current) use of antithrombotics/antiplatelets; Z90.49 Acquired absence of other specified parts of digestive tract; Z90.710 Acquired absence of both cervix and uterus
CPT/HCPCS: 71045; 80048; 84484; 85025; 93005; 99284; J7040; A4216

== ENCOUNTER → 2023-08-28 | Outpatient (CLI) | payer MEDICARE, OTHER, SELFPAY ==
--- NOTE | 2023-08-28 08:18 | BI_ITS ---
MAMMOGRAPHY - BILATERAL SCREENING REASON FOR EXAM: Female, 88 years old. Routine annual screening examination. PERTINENT HISTORY: Sister with breast cancer. Mother with breast cancer. Chronic bilateral nipple inversions. TECHNIQUE: Digital bilateral breast sudheer (3D mammographic acquisition) in the CC and MLO projections. 2-D mediolateral oblique (MLO) and craniocaudad (CC) views of both breasts were obtained. CAD: Full Field Digital Mammography with Computer Added Detection was performed. COMPARISON: Comparison is made with prior study dated August 30, 2021 and August 29, 2020. FINDINGS: Breast Composition: The breasts are extremely dense, which lowers the sensitivity of mammography. There are no dominant masses or suspicious calcifications. No other significant abnormalities are identified. There has been no significant change since the prior study. BI/SCRN MAMM (CAD)W/SUDHEER BILAT IMPRESSION: Stable bilateral screening mammogram. Yearly follow-up mammogram recommended. (A) ASSESSMENT CATEGORY: BIRADS Category 1: Negative. A letter regarding these results will be sent to the patient by the facility within 30 days. Approximately 10% of breast cancers are not detected by mammography. A normal mammogram should not delay biopsy of a clinically suspicious abnormality. [id number] Electronically Signed: Herberth Cuello MD at 9:44 EDT ,
== END | disposition home or self-care (01) ==
LOC: OPBI 08:17
PROVIDERS: PCP Family Medicine; Referring Provider Family Medicine; Visit Provider Family Medicine
DX: Z12.31 Encounter for screening mammogram for malignant neoplasm of breast (principal)
CPT/HCPCS: 77063; 77067

== ENCOUNTER → 2024-01-01 | Outpatient (CLI) | payer MEDICARE, OTHER, SELFPAY ==
[2024-01-01 17:48] LABS: Hematocrit 37.6 % (37-47); Hemoglobin 13.4 g/dL (12.0-15.0); Mean Corp Hgb Conc 35.6 g/dL (32-36); Mean Corpuscular Hgb 33.2 pg (27.0-32.0); Mean Corpuscular Volume 93.1 fL (81-99); Mean Platelet Vol. 10.9 fl (6.2-12.0); Platelet Count 231 K/mm3 (150-450); RBC Distribution Width CV 13.6 % (11.6-14.6); RBC Distribution Width SD 46.2 fl (35.1-43.9); Red Blood Count 4.04 M/mm3 (4.2-5.4); White Blood Count 5.5 K/mm3 (4.4-11.0)
[2024-01-01 17:56] LABS: BNP,B-Type NATRIURETIC PEPTIDE 110.1 pg/mL (0-100)
[2024-01-01 19:19] LABS: AST(SGOT) 29 U/L (15-37); Alanine Aminotransfer ALT/SGPT 28 U/L (13-56); Albumin, Serum 3.2 g/dL (3.2-5.0); Alkaline Phosphatase 98 U/L (45-117); Anion Gap 8 (5-15); BUN 22 mg/dL (7-18); BUN/Creat Ratio 16.2 RATIO (10-20); Calcium,Total 8.5 mg/dL (8.5-10.1); Chloride 104 mmol/L (98-107); Cholesterol 152 mg/dL (200); Creatinine, Serum 1.36 mg/dL (0.55-1.02); EST Glomerular Filtration Rate 39 mL/min (>60); Est Glom Filt Rate - Afr Amer 47 mL/min (>60); Globulin 3.1 g/dL (2.2-4.2); Glucose 112 mg/dL (74-106); High Density Lipoprotein 49 mg/dL; Potassium 4.2 mmol/L (3.5-5.1); Protein, Total 6.3 g/dL (6.4-8.2); Sodium Level 138 mmol/L (136-145); Triglycerides 124 mg/dL; Very Low Density Lipoprotein 25 mg/dL (5-40)
== END | disposition home or self-care (01) ==
LOC: MFPLAB 15:59
PROVIDERS: PCP Family Medicine; Visit Provider Family Medicine
DX: E78.5 Hyperlipidemia, unspecified (principal); I51.81 Takotsubo syndrome; E03.9 Hypothyroidism, unspecified; I10 Essential (primary) hypertension
CPT/HCPCS: 80053; 80061; 83880; 84443; 85027

== ENCOUNTER → 2024-07-07 | Outpatient (CLI) | payer MEDICARE, OTHER, SELFPAY ==
[2024-07-07 13:18] LABS: Microalbumin,Random Urine < 12.0 mg/L (NO RANGE EST.); Microalbumin:Creatinine Ratio UNABLE TO CALCULATE mg/g CRE
[2024-07-07 13:30] LABS: ALB/GLOB Ratio 1.4 RATIO (0.9-2.4); AST(SGOT) 29 U/L (<=31); Alanine Aminotransfer ALT/SGPT 18 U/L (<=34); Alkaline Phosphatase 95 U/L (35-104); Anion Gap 10 (5-15); BUN 19 mg/dL (4-19); BUN/Creat Ratio 21.1 RATIO (10-20); Calcium,Total 9.3 mg/dL (7.6-11.0); Chloride 101 mmol/L (98-108); Creatinine, Serum 0.92 mg/dL (0.70-1.20); EST Glomerular Filtration Rate 60 (>60); Globulin 2.9 g/dL (2.2-4.2); Glucose 143 mg/dL (70-99); Potassium 4.5 mmol/L (3.3-5.1); Protein, Total 6.9 g/dL (5.9-8.4); Sodium Level 138 mmol/L (133-145); Total Bilirubin 0.42 mg/dL (0.00-1.30); Vitamin D,25 Hydroxy 70.4 ng/mL (30-100)
== END | disposition home or self-care (01) ==
LOC: MTLAB 10:34
PROVIDERS: PCP Family Medicine; Referring Provider Family Medicine; Visit Provider Family Medicine
DX: M85.80 Other specified disorders of bone density and structure, unspecified site (principal); I10 Essential (primary) hypertension; E03.9 Hypothyroidism, unspecified
CPT/HCPCS: 36415; 80053; 82043; 82306; 82570; 84443

== ENCOUNTER 2024-10-02 09:28 | Emergency (ER) | payer MEDICARE, OTHER, SELFPAY ==
[2024-10-02 09:29] VITALS: BP 156/82; PULSE 65; RESP 16; TEMP 36.4; O2SAT 99; BMI 18.6
[2024-10-02 11:28] VITALS: BP 138/82; PULSE 67; RESP 16; O2SAT 95
[2024-10-02 12:00] VITALS: BP 142/81; PULSE 61; RESP 16; O2SAT 99
[2024-10-02 13:00] VITALS: BP 136/88; PULSE 64; RESP 16; O2SAT 96
[2024-10-02 13:17] VITALS: BP 136/88; PULSE 64; RESP 16; TEMP 36.6; O2SAT 96
== END 2024-10-02 13:17 | disposition home or self-care (01) ==
PROVIDERS: Emergency Provider Surgery; PCP Family Medicine; Visit Provider Surgery
DX: S00.83XA Contusion of other part of head, initial encounter (principal); I25.10 Atherosclerotic heart disease of native coronary artery without angina pectoris; E78.2 Mixed hyperlipidemia; S51.801A Unspecified open wound of right forearm, initial encounter; S51.802A Unspecified open wound of left forearm, initial encounter; S50.12XA Contusion of left forearm, initial encounter; S50.11XA Contusion of right forearm, initial encounter; I10 Essential (primary) hypertension; S60.211A Contusion of right wrist, initial encounter; W10.9XXA Fall (on) (from) unspecified stairs and steps, initial encounter; I25.2 Old myocardial infarction; Z79.82 Long term (current) use of aspirin; Z79.899 Other long term (current) drug therapy; Z90.49 Acquired absence of other specified parts of digestive tract; Z90.710 Acquired absence of both cervix and uterus; S09.90XA Unspecified injury of head, initial encounter; Z23 Encounter for immunization
CPT/HCPCS: 70450; 70486; 72125; 73110; 90715; 99282

== ENCOUNTER → 2024-11-01 | Outpatient (CLI) | payer MEDICARE, OTHER, SELFPAY ==
[2024-11-01 14:03] LABS: Hematocrit 41.4 % (37-47); Hemoglobin 13.7 g/dL (12.0-15.0); Immature Granulocytes Count 0.020 X10^3/uL (0.0-0.0); Mean Corp Hgb Conc 33.1 g/dL (32-36); Mean Corpuscular Volume 93.5 fL (81-99); Mean Platelet Vol. 10.1 fl (6.2-12.0); NRBC Flagged by Analyzer 0 % (0-5); Platelet Count 215 K/mm3 (150-450); RBC Distribution Width CV 13.3 % (11.6-14.6); RBC Distribution Width SD 45.5 fl (35.1-43.9); Red Blood Count 4.43 M/mm3 (4.2-5.4); White Blood Count 6.4 K/mm3 (4.4-11.0)
[2024-11-01 15:38] LABS: Anion Gap 10 (5-15); BUN 19 mg/dL (4-19); BUN/Creat Ratio 21.5 RATIO (10-20); Calcium,Total 9.5 mg/dL (7.6-11.0); Carbon Dioxide 25.7 mmol/L (21.0-32.0); Chloride 103 mmol/L (98-108); Glucose 100 mg/dL (70-99); Magnesium 2.5 mg/dL (1.5-2.2); Potassium 4.4 mmol/L (3.3-5.1)
== END | disposition home or self-care (01) ==
LOC: LAB 13:42
PROVIDERS: PCP Family Medicine; Referring Provider Physician Assistant Medical; Visit Provider Physician Assistant Medical
DX: R00.2 Palpitations (principal); I25.10 Atherosclerotic heart disease of native coronary artery without angina pectoris; I25.5 Ischemic cardiomyopathy; I51.81 Takotsubo syndrome; I49.3 Ventricular premature depolarization
CPT/HCPCS: 36415; 80048; 83735; 84443; 85025

== ENCOUNTER → 2025-01-05 | Outpatient (CLI) | payer MEDICARE, OTHER, SELFPAY | END | disposition home or self-care (01) | LOC: PSN 13:27 | PROVIDERS: PCP Family Medicine; Referring Provider Nurse Practitioner Gerontology; Visit Provider Nurse Practitioner Gerontology | DX: R42 Dizziness and giddiness (principal) | CPT/HCPCS: 93225; 93226 ==